=== PATIENT | female | born 1985 | race Caucasian/White ===

== ENCOUNTER → 2016-06-05 | Outpatient (CLI) | payer MEDICAID ==
[~2016-06-05] MED LIST: HYDRO50TAB PO; No current meds.; TRAZ50TA2 PO; ZOLO50TA PO
[2016-06-05 16:32] LABS: CONTROL LINE UCG INT CTR LINE PRESENT
[2016-06-05 16:57] LABS: ALBUMIN 3.7 GM/DL (3.2-5.2); ALBUMIN/GLOBULIN RATIO 1.03 (1.00-1.93); ALKALINE PHOSPHATASE 71 U/L (45-117); ALT/SGPT 94 U/L (12-78); ANION GAP 8 MEQ/L (8-16); AST/SGOT 75 U/L (15-37); BILIRUBIN,TOTAL 0.3 MG/DL (0.2-1.0); BLOOD UREA NITROGEN 5 MG/DL (7-18); CALCIUM LEVEL 8.5 MG/DL (8.5-10.1); CARBON DIOXIDE LEVEL 26 MEQ/L (21-32); CHLORIDE LEVEL 108 MEQ/L (98-107); GLOMERULAR FILTRATION RATE > 60.0 (>60); GLUCOSE, FASTING 104 MG/DL (70-105); POTASSIUM SERUM 4.3 MEQ/L (3.5-5.1); SODIUM LEVEL 142 MEQ/L (136-145); TOTAL PROTEIN 7.3 GM/DL (6.4-8.2)
[2016-06-05 17:11] LABS: BASO % 0.6 % (0.0-1.0); EOS # 0.2 K/mm3 (0.0-0.50); EOS % 3.4 % (0.0-3.0); LARGE UNSTAINED CELL # 0.1 K/mm3 (0.0-0.4); LARGE UNSTAINED CELL % 1.8 % (0.0-4.0); LYMPH # 2.3 K/mm3 (1.5-4.5); MEAN CORPUSCULAR HGB CONC 34.6 g/dl (32.0-36.5); MEAN CORPUSCULAR VOLUME 92.6 fl (80.0-96.0); MONO # 0.3 K/mm3 (0.0-0.8); MONO % 5.6 % (0.0-5.0); NEUTROPHILS # 2.9 K/mm3 (1.8-7.7); NEUTROPHILS % 49.7 % (36.0-66.0); PLATELET COUNT, AUTOMATED 140 k/mm3 (150-450); RED CELL DISTRIBUTION WIDTH 12.5 % (11.5-14.5); WHITE BLOOD COUNT 5.9 K/mm3 (4.0-10.0)
[2016-06-07 09:26] LABS: HIV SCRN NEGATIVE (NEGATIVE)
[2016-06-07 09:27] LABS: CONTROL LINE INT CTR LINE PRESENT; HIV SCRN1 NEGATIVE (NEGATIVE)
== END ==
LOC: M LAB 15:56
PROVIDERS: ATTEND Family Medicine
DX: F11.20 Opioid dependence, uncomplicated (principal)

== ENCOUNTER 2016-07-06 18:20 | Emergency (ER) | payer MEDICAID ==
[~2016-07-06] VITALS: Ht 160 cm; Wt 81.6 kg
[2016-07-06 18:21] VITALS: BP 131/66
[2016-07-06] MEDS ORDERED: ZYPR10TA PO (18:28)
[2016-07-06] MEDS ORDERED: buspar (18:28)
[2016-07-06] MEDS ORDERED: METH10TA2 PO (18:28)
[2016-07-06] MEDS ORDERED: IBUP80TA PO (18:51)
[2016-07-06] MEDS ORDERED: AMOX500C PO (18:51)
[2016-07-06] MEDS ORDERED: IBUPROFEN 800 MG TAB PO ONE (19:00)
[2016-07-06] MEDS ORDERED: AMOXICILLIN 500 MG CAP PO ONE (19:00)
[2016-07-06] MEDS ORDERED: ACETAMINOPHEN 325 MG TAB PO ONE (19:00)
== END 2016-07-06 19:09 | disposition home or self-care (01) ==
LOC: M ED 18:54
DX: K04.7 Periapical abscess without sinus (principal); F41.9 Anxiety disorder, unspecified; F32.9 Major depressive disorder, single episode, unspecified; F11.20 Opioid dependence, uncomplicated; Z79.899 Other long term (current) drug therapy; Z88.2 Allergy status to sulfonamides

== ENCOUNTER → 2016-09-11 | Outpatient (CLI) | payer OTHER ==
[~2016-09-11] MED LIST changes: +AMOX500C PO; +IBUP80TA PO; +METH10TA2 PO; +ZYPR10TA PO; +buspar
== END ==
LOC: M WUC 15:04
PROVIDERS: ATTEND Physician Assistant
DX: M25.561 Pain in right knee (principal)

== ENCOUNTER → 2016-09-16 | Outpatient (REF) | payer OTHER ==
[2016-09-16 19:22] LABS: BASO % 0.4 % (0.0-1.0); EOS # 0.2 K/mm3 (0.0-0.50); EOS % 2.7 % (0.0-3.0); LARGE UNSTAINED CELL # 0.1 K/mm3 (0.0-0.4); LARGE UNSTAINED CELL % 1.5 % (0.0-4.0); LYMPH # 2.7 K/mm3 (1.5-4.5); LYMPH % 30.9 % (24.0-44.0); MEAN CORPUSCULAR HEMOGLOBIN 28.5 pg (27.0-33.0); MEAN CORPUSCULAR HGB CONC 33.1 g/dl (32.0-36.5); MONO # 0.7 K/mm3 (0.0-0.8); MONO % 8.2 % (0.0-5.0); NEUTROPHILS # 4.6 K/mm3 (1.8-7.7); NEUTROPHILS % 56.4 % (36.0-66.0); PLATELET COUNT, AUTOMATED 154 k/mm3 (150-450); RED CELL DISTRIBUTION WIDTH 13.9 % (11.5-14.5); WHITE BLOOD COUNT 8.2 K/mm3 (4.0-10.0)
[2016-09-16 20:20] LABS: URIC ACID 4.2 MG/DL (2.6-6.0)
[2016-09-16 20:38] LABS: ERYTHROCYTE SEDIMENTATION RATE 18 mm/hr (0-20)
[2016-09-19 00:07] LABS: Lyme Disease IgG/IgM Antibodie <0.91 ISR (0.00-0.90); Lyme Disease IgM Ab Quantitati <0.80 index (0.00-0.79)
== END ==
LOC: M LABDRAW1 17:17
PROVIDERS: ATTEND Orthopaedic Surgery
DX: M25.561 Pain in right knee (principal)

== ENCOUNTER → 2016-10-07 | Outpatient (REF) | payer OTHER ==
[2016-10-07 18:32] LABS: BASO % 0.6 % (0.0-1.0); EOS # 0.3 K/mm3 (0.0-0.50); EOS % 3.7 % (0.0-3.0); LARGE UNSTAINED CELL # 0.1 K/mm3 (0.0-0.4); LARGE UNSTAINED CELL % 1.2 % (0.0-4.0); LYMPH # 2.5 K/mm3 (1.5-4.5); LYMPH % 31.7 % (24.0-44.0); MEAN CORPUSCULAR HEMOGLOBIN 27.5 pg (27.0-33.0); MEAN CORPUSCULAR HGB CONC 32.3 g/dl (32.0-36.5); MONO # 0.6 K/mm3 (0.0-0.8); MONO % 7.5 % (0.0-5.0); NEUTROPHILS # 4.2 K/mm3 (1.8-7.7); NEUTROPHILS % 55.3 % (36.0-66.0); PLATELET COUNT, AUTOMATED 131 k/mm3 (150-450); RED CELL DISTRIBUTION WIDTH 14.7 % (11.5-14.5); WHITE BLOOD COUNT 7.6 K/mm3 (4.0-10.0)
[2016-10-07 19:20] LABS: ALBUMIN 3.2 GM/DL (3.2-5.2); ALBUMIN/GLOBULIN RATIO 0.89 (1.00-1.93); ALKALINE PHOSPHATASE 96 U/L (45-117); ALT/SGPT 118 U/L (12-78); ANION GAP 9 MEQ/L (8-16); AST/SGOT 121 U/L (15-37); BILIRUBIN,TOTAL 0.4 MG/DL (0.2-1.0); BLOOD UREA NITROGEN 5 MG/DL (7-18); CALCIUM LEVEL 8.4 MG/DL (8.5-10.1); CARBON DIOXIDE LEVEL 26 MEQ/L (21-32); CHLORIDE LEVEL 105 MEQ/L (98-107); CREATININE FOR GFR 0.58 MG/DL (0.55-1.02); GLOMERULAR FILTRATION RATE > 60.0 (>60); GLUCOSE, FASTING 132 MG/DL (70-105); POTASSIUM SERUM 4.1 MEQ/L (3.5-5.1); SODIUM LEVEL 140 MEQ/L (136-145); TOTAL PROTEIN 6.8 GM/DL (6.4-8.2)
[2016-10-07 21:41] LABS: ERYTHROCYTE SEDIMENTATION RATE 16 mm/hr (0-20)
[2016-10-10 00:07] LABS: HEPATITIS C QUANTITATION 3562730 IU/mL (.); Lyme Disease IgG/IgM Antibodie <0.91 ISR (0.00-0.90); Lyme Disease IgM Ab Quantitati <0.80 index (0.00-0.79)
== END ==
LOC: M LABDRAW1 16:35
PROVIDERS: ATTEND Internal Medicine Rheumatology
DX: M05.79 Rheumatoid arthritis with rheumatoid factor of multiple sites without organ or systems involvement (principal); R53.83 Other fatigue; B18.2 Chronic viral hepatitis C; Z79.899 Other long term (current) drug therapy

== ENCOUNTER → 2016-10-07 | Outpatient (REF) | payer OTHER ==
[2016-10-07 18:49] LABS: CONTROL LINE HCG INT CTR LINE PRESENT
[2016-10-09 10:54] LABS: HEPATITIS B SURFACE ANTIBODY POSITIVE (POSITIVE)
[2016-10-12 00:08] LABS: ALT 112 IU/L (0-40); GGT 79 IU/L (0-60); HAPTOGLOBIN 97 mg/dL (34-200); HEPATITIS C VIRUS GENOTYPE 3 (.); NECROINFLAMM GRADE A2-A3 (.); TOTAL BILIRUBIN 0.2 mg/dL (0.0-1.2)
== END ==
LOC: M LABDRAW1 16:39
PROVIDERS: ATTEND Internal Medicine Infectious Disease
DX: B18.2 Chronic viral hepatitis C (principal); L02.221 Furuncle of abdominal wall; I01.1 Acute rheumatic endocarditis

== ENCOUNTER → 2016-10-23 | Outpatient (CLI) | payer OTHER ==
--- NOTE | 2016-10-23 19:18 | REP ---
MRI ABDOMEN WITHOUT CONTRAST (MRCP) 10/23/2016. Clinical history: Chronic hepatitis C, abnormal ultrasound. Comparison: Ultrasound 10/10/2016, 04/22/2014, CT abdomen 05/04/2014. Technique: Coronal and axial heavily T2-weighted sequences with thick slab heavily T2-weighted images rotated about the longitudinal axis of the body and a T2-weighted volume acquisition with MIP reformatting and rotational display about the longitudinal axis of the body for MRCP. Findings: The liver has a midclavicular line length of about 18 cm, mildly enlarged. No discrete hepatic mass. Common duct in the khai hepatis is dilated. The proximal intrahepatic ducts about 9 mm on the right and 8 mm on the left just before their junction. The common duct in the khai hepatis is further dilated. On the axial images, it is up to 16 mm. On the MRCP reconstructions also 16.6 mm. I do not see a filling defect. I do not see stricture with distal tapering of that duct to the ampulla. It courses through the pancreatic head. There is no filling defect to suggest stone or mass within the duct. Pancreatic duct is seen and not abnormally dilated. No gross pancreatic mass, cyst or adjacent fluid collection. Impression: 1. Mild hepatomegaly up to 18 cm without definite splenomegaly. The maximum diameter of the spleen is 12.4 cm. 2. Dilated common bile duct in the khai hepatis and also the most distal portions of the right and left hepatic ducts, which were 9 and 8 mm respectively. No filling defect is identified and this is not a post stenotic dilatation. I do not see definite stone or other filling defect with the duct extending to the khai hepatis. Of note, the CT 05/04/2014 that common duct was 16 mm at the khai hepatis. This suggests choledochocele. No significant intrahepatic biliary dilatation other than the distal most ducts. Signed by Brendan Cardenas MD 10/23/2016 07:25 P
== END ==
LOC: M RAD 09:56
PROVIDERS: ATTEND Internal Medicine Infectious Disease
DX: B18.2 Chronic viral hepatitis C (principal); R93.2 Abnormal findings on diagnostic imaging of liver and biliary tract

== ENCOUNTER → 2016-11-18 | Outpatient (REF) | payer OTHER | LOC: M SFHCPLAZ 08:58 | PROVIDERS: ATTEND Family Medicine | DX: E66.9 Obesity, unspecified (principal) ==

== ENCOUNTER → 2016-11-19 | Outpatient (REF) | payer OTHER | LOC: M SFHCPLAZ 13:12 | PROVIDERS: ATTEND Family Medicine | DX: R73.01 Impaired fasting glucose (principal) ==

== ENCOUNTER → 2016-12-09 | Outpatient (REF) | payer OTHER ==
[2016-12-09 13:44] LABS: ALBUMIN 3.3 GM/DL (3.2-5.2); ALKALINE PHOSPHATASE 95 U/L (45-117); ALT/SGPT 25 U/L (12-78); ANION GAP 7 MEQ/L (8-16); AST/SGOT 16 U/L (15-37); BILIRUBIN,TOTAL 0.2 MG/DL (0.2-1.0); BLOOD UREA NITROGEN 5 MG/DL (7-18); CALCIUM LEVEL 8.1 MG/DL (8.5-10.1); CARBON DIOXIDE LEVEL 27 MEQ/L (21-32); CHLORIDE LEVEL 106 MEQ/L (98-107); CREATININE FOR GFR 0.66 MG/DL (0.55-1.02); GLOMERULAR FILTRATION RATE > 60.0 (>60); GLUCOSE, FASTING 127 MG/DL (70-105); POTASSIUM SERUM 3.7 MEQ/L (3.5-5.1); SODIUM LEVEL 140 MEQ/L (136-145); TOTAL PROTEIN 7.4 GM/DL (6.4-8.2)
[2016-12-09 13:54] LABS: BASO % 0.3 % (0.0-1.0); EOS # 0.2 K/mm3 (0.0-0.50); EOS % 2.8 % (0.0-3.0); LARGE UNSTAINED CELL # 0.2 K/mm3 (0.0-0.4); LYMPH # 2.2 K/mm3 (1.5-4.5); LYMPH % 30.3 % (24.0-44.0); MEAN CORPUSCULAR HEMOGLOBIN 28.2 pg (27.0-33.0); MEAN CORPUSCULAR HGB CONC 33.8 g/dl (32.0-36.5); MEAN CORPUSCULAR VOLUME 83.4 fl (80.0-96.0); MONO # 0.5 K/mm3 (0.0-0.8); MONO % 6.4 % (0.0-5.0); NEUTROPHILS # 4.2 K/mm3 (1.8-7.7); NEUTROPHILS % 58.2 % (36.0-66.0); PLATELET COUNT, AUTOMATED 168 k/mm3 (150-450); RED CELL DISTRIBUTION WIDTH 14.8 % (11.5-14.5); WHITE BLOOD COUNT 7.3 K/mm3 (4.0-10.0)
[2016-12-09 14:28] LABS: ERYTHROCYTE SEDIMENTATION RATE 24 mm/hr (0-20)
== END ==
LOC: M LABDRAW1 13:00
PROVIDERS: ATTEND Internal Medicine Rheumatology
DX: B18.2 Chronic viral hepatitis C (principal); E11.9 Type 2 diabetes mellitus without complications; M05.79 Rheumatoid arthritis with rheumatoid factor of multiple sites without organ or systems involvement; F31.9 Bipolar disorder, unspecified; F43.10 Post-traumatic stress disorder, unspecified; L02.224 Furuncle of groin

== ENCOUNTER → 2016-12-17 | Outpatient (REF) | payer OTHER ==
[2016-12-17 14:34] LABS: ALBUMIN 3.5 GM/DL (3.2-5.2); ALBUMIN/GLOBULIN RATIO 0.8 (1.00-1.93); BILIRUBIN,DIRECT 0.1 MG/DL (0.0-0.2); BILIRUBIN,TOTAL 0.3 MG/DL (0.2-1.0); TOTAL PROTEIN 7.9 GM/DL (6.4-8.2)
[2016-12-19 10:14] LABS: HEPATITIS C QUANTITATION HCV Not Detected IU/mL (.)
== END ==
LOC: M SFHCPLAZ 10:33
PROVIDERS: ATTEND Internal Medicine Infectious Disease
DX: E11.69 Type 2 diabetes mellitus with other specified complication (principal); B18.2 Chronic viral hepatitis C

== ENCOUNTER → 2017-05-05 | Outpatient (CLI) | payer OTHER ==
[2017-05-05 14:45] LABS: HEMATOCRIT 38.4 % (36.0-47.0); HEMOGLOBIN 12.9 g/dl (12.0-16.0); MEAN CORPUSCULAR HEMOGLOBIN 28.7 pg (27.0-33.0); MEAN CORPUSCULAR HGB CONC 33.6 g/dl (32.0-36.5); MEAN CORPUSCULAR VOLUME 85.3 fl (80.0-96.0); PLATELET COUNT, AUTOMATED 188 10^3/uL (150-450); RED CELL DISTRIBUTION WIDTH 14.2 % (11.5-14.5); WHITE BLOOD COUNT 9.1 10^3/uL (4.0-10.0)
[2017-05-05 17:12] LABS: CHLAMYDIA DNA AMPLIFICATION NEGATIVE (NEGATIVE); GC DNA AMPLIFICATION NEGATIVE (NEGATIVE)
[2017-05-05 22:10] LABS: ALBUMIN 3.7 GM/DL (3.2-5.2); ALKALINE PHOSPHATASE 104 U/L (45-117); ALT/SGPT 20 U/L (12-78); ANION GAP 10 MEQ/L (8-16); AST/SGOT 17 U/L (7-37); BILIRUBIN,TOTAL 0.2 MG/DL (0.2-1.0); BLOOD UREA NITROGEN 6 MG/DL (7-18); CALCIUM LEVEL 8.6 MG/DL (8.5-10.1); CARBON DIOXIDE LEVEL 22 MEQ/L (21-32); CHLORIDE LEVEL 110 MEQ/L (98-107); CREATININE FOR GFR 0.87 MG/DL (0.55-1.30); GLOMERULAR FILTRATION RATE > 60.0 (>60); GLUCOSE, FASTING 103 MG/DL (70-100); POTASSIUM SERUM 3.9 MEQ/L (3.5-5.1); SODIUM LEVEL 142 MEQ/L (136-145); TOTAL PROTEIN 7.4 GM/DL (6.4-8.2)
[2017-05-07 11:07] LABS: HEPATITIS B SURFACE ANTIGEN NEGATIVE (NEGATIVE)
[2017-05-07 11:28] LABS: HIV 1&2 SCREEN CENTAUR NEGATIVE (NEGATIVE)
[2017-05-07 11:38] LABS: HEPATITIS C VIRUS ABY INDEX > 11.0 INDEX (<0.8)
== END ==
LOC: M LAB 13:41
DX: F11.20 Opioid dependence, uncomplicated (principal)
CPT/HCPCS: 93005

== ENCOUNTER → 2017-05-05 | Outpatient (CLI) | payer OTHER ==
[2017-05-05 15:20] LABS: ALBUMIN 3.6 GM/DL (3.2-5.2); ALBUMIN/GLOBULIN RATIO 0.92 (1.00-1.93); ALKALINE PHOSPHATASE 105 U/L (45-117); ALT/SGPT 20 U/L (12-78); ANION GAP 8 MEQ/L (8-16); AST/SGOT 15 U/L (7-37); BILIRUBIN,TOTAL 0.2 MG/DL (0.2-1.0); BLOOD UREA NITROGEN 7 MG/DL (7-18); CALCIUM LEVEL 8.3 MG/DL (8.5-10.1); CARBON DIOXIDE LEVEL 23 MEQ/L (21-32); CHLORIDE LEVEL 110 MEQ/L (98-107); GLOMERULAR FILTRATION RATE > 60.0 (>60); GLUCOSE, FASTING 102 MG/DL (70-100); POTASSIUM SERUM 3.9 MEQ/L (3.5-5.1); SODIUM LEVEL 141 MEQ/L (136-145); TOTAL PROTEIN 7.5 GM/DL (6.4-8.2)
[2017-05-05 16:40] LABS: HEMATOCRIT 39.2 % (36.0-47.0); HEMOGLOBIN 13.1 g/dl (12.0-16.0); MEAN CORPUSCULAR HEMOGLOBIN 28.5 pg (27.0-33.0); MEAN CORPUSCULAR HGB CONC 33.4 g/dl (32.0-36.5); MEAN CORPUSCULAR VOLUME 85.4 fl (80.0-96.0); PLATELET COUNT, AUTOMATED 195 10^3/uL (150-450); RED BLOOD COUNT 4.59 10^6/uL (4.00-5.40); RED CELL DISTRIBUTION WIDTH 14.2 % (11.5-14.5)
[2017-05-05 16:47] LABS: ADD MANUAL DIFFER YES; DIFF SLIDE NUMBER 306; POSITIVE MORPH POS FLAG
[2017-05-05 17:49] LABS: BASOPHILS 1 % (0-4); EOSINOPHILS 2 % (0-5); LYMPHOCYTES 48 % (16-52); MONOCYTES 5 % (0-8); NEUTROPHILS 44 % (35-75); PLATELET ESTIMATE NORMAL (NORMAL)
== END ==
LOC: M LAB 13:46
DX: M05.79 Rheumatoid arthritis with rheumatoid factor of multiple sites without organ or systems involvement (principal); Z51.81 Encounter for therapeutic drug level monitoring; Z79.899 Other long term (current) drug therapy

== ENCOUNTER → 2017-05-13 | Outpatient (REF) | payer OTHER ==
[2017-05-13 14:47] LABS: ESTIMATED AVERAGE GLUCOSE 105 MG/DL (60-110); HEMOGLOBIN A1c 5.3 %
== END ==
LOC: M SFHCPLAZ 10:54
DX: E11.69 Type 2 diabetes mellitus with other specified complication (principal)

== ENCOUNTER → 2017-05-22 | Outpatient (REF) | payer OTHER ==
[2017-05-26 10:08] LABS: HEPATITIS C QUANTITATION HCV Not Detected IU/mL (.)
== END ==
LOC: M SFHCPLAZ 11:00
DX: B18.2 Chronic viral hepatitis C (principal)
CPT/HCPCS: 36415

== ENCOUNTER → 2017-06-27 | Outpatient (CLI) | payer OTHER ==
[~2017-06-27] MED LIST changes: -AMOX500C PO; -HYDRO50TAB PO; -IBUP80TA PO; -METH10TA2 PO; -No current meds.; +PROHANCE 279.3MG/ML 15ML VIAL (A9576) As Ordered; +PROHANCE 279.3MG/ML 5ML VIAL (A9576) As Ordered; -TRAZ50TA2 PO; -ZOLO50TA PO; -ZYPR10TA PO; -buspar
== END ==
LOC: M RAD 15:59
DX: R93.3 Abnormal findings on diagnostic imaging of other parts of digestive tract (principal)

== ENCOUNTER 2017-07-16 18:32 | Emergency (ER) | payer OTHER ==
[2017-07-16 19:50] LABS: BASO # 0.1 10^3/uL (0.0-0.2); BASO % 0.6 % (0.0-1.0); EOS # 0.2 10^3/uL (0.0-0.50); EOS % 2.3 % (0.0-3.0); HEMATOCRIT 35.1 % (36.0-47.0); HEMOGLOBIN 11.7 g/dl (12.0-15.5); IMMATURE GRANULOCYTE % 0.5 % (0-3.0); LYMPH # 3.1 10^3/uL (1.5-4.5); LYMPH % 32.7 % (24.0-44.0); MEAN CORPUSCULAR HEMOGLOBIN 28.4 pg (27.0-33.0); MEAN CORPUSCULAR HGB CONC 33.3 g/dl (32.0-36.5); MEAN CORPUSCULAR VOLUME 85.2 fl (80.0-96.0); MONO # 0.8 10^3/uL (0.0-0.8); MONO % 8.1 % (0.0-5.0); NEUTROPHILS # 5.3 10^3/uL (1.8-7.7); NEUTROPHILS % 55.8 % (36.0-66.0); PLATELET COUNT, AUTOMATED 177 10^3/uL (150-450); RED BLOOD COUNT 4.12 10^6/uL (4.00-5.40); RED CELL DISTRIBUTION WIDTH 13.8 % (11.5-14.5); WHITE BLOOD COUNT 9.6 10^3/uL (4.0-10.0)
[2017-07-16] MEDS: NS 1,000 ML IV (19:50)
[2017-07-16] MEDS: MORPHINE 4 MG/ML 1ML VIAL/SYRINGE (J2270) IV (19:50)
[2017-07-16 20:13] LABS: CONTROL LINE HCG INT CTR LINE PRESENT; HCG, SERUM QUALITATIVE NEGATIVE (NEGATIVE)
[2017-07-16] MEDS ORDERED: ISOVUE-370 76% 100ML VIAL (Q9967) As Ordered (20:16)
[2017-07-16 20:20] LABS: LACTIC ACID SEPSIS PROTOCOL 1.9 MMOL/L (0.4-2.0)
[2017-07-16 20:21] LABS: ALBUMIN 3.3 GM/DL (3.2-5.2); ALKALINE PHOSPHATASE 97 U/L (45-117); ALT/SGPT 17 U/L (12-78); ANION GAP 6 MEQ/L (8-16); AST/SGOT 12 U/L (7-37); BILIRUBIN,DIRECT < 0.1 MG/DL (0.0-0.2); BILIRUBIN,TOTAL 0.2 MG/DL (0.2-1.0); BLOOD UREA NITROGEN 7 MG/DL (7-18); CALCIUM LEVEL 8.3 MG/DL (8.5-10.1); CARBON DIOXIDE LEVEL 24 MEQ/L (21-32); CHLORIDE LEVEL 111 MEQ/L (98-107); CREATININE FOR GFR 0.95 MG/DL (0.55-1.30); GLOMERULAR FILTRATION RATE > 60.0 (>60); GLUCOSE, FASTING 122 MG/DL (70-100); POTASSIUM SERUM 3.7 MEQ/L (3.5-5.1); SODIUM LEVEL 141 MEQ/L (136-145); TOTAL PROTEIN 7.4 GM/DL (6.4-8.2)
[2017-07-16] MEDS: KETOROLAC 30 MG/ML VIAL (J1885) IV (21:34)
[2017-07-16] MEDS: CLINDAMYCIN 600 MG in APPROPRIATE DILUENT 1 EA IV (23:15)
== END 2017-07-16 23:57 | disposition home or self-care (01) ==
LOC: M ED 18:32
DX: L02.211 Cutaneous abscess of abdominal wall (principal); K42.9 Umbilical hernia without obstruction or gangrene; R16.2 Hepatomegaly with splenomegaly, not elsewhere classified; Z79.899 Other long term (current) drug therapy; Z88.2 Allergy status to sulfonamides
CPT/HCPCS: J2270

== ENCOUNTER → 2017-07-22 | Outpatient (REF) | payer OTHER ==
[2017-07-25 00:07] LABS: HPV HYBRID CAPTURE II Negative (Negative)
== END ==
LOC: M SFHCPLAZ 15:41
DX: Z12.4 Encounter for screening for malignant neoplasm of cervix (principal)

== ENCOUNTER → 2017-12-24 | Outpatient (REF) | payer OTHER ==
[2017-12-26 14:07] LABS: HEPATITIS A ANTIBODY IGM NEGATIVE (NEGATIVE); HEPATITIS B CORE ANTIBODY IGM NEGATIVE (NEGATIVE); HEPATITIS B SURFACE ANTIGEN NEGATIVE (NEGATIVE); HIV 1&2 SCREEN CENTAUR NEGATIVE (NEGATIVE)
[2017-12-26 14:08] LABS: HEPATITIS C VIRUS ABY INDEX > 11.0 INDEX (<0.8)
[2017-12-27 15:28] LABS: HSV TYPE I IgG SPECIFIC 5.76 index (0.00-0.90); HSV TYPE II IgG SPECIFIC 1.08 index (0.00-0.90); HSV-2 IgG Confirmation Positive (Negative)
[2017-12-29 08:06] LABS: HCV RNA NAA QUALITATIVE Negative (Negative)
== END ==
LOC: M SFHCPLAZ 16:17
DX: Z87.898 Personal history of other specified conditions (principal)

== ENCOUNTER → 2018-01-26 | Outpatient (REF) | payer OTHER | LOC: M SFHCPLAZ 17:31 | DX: L02.93 Carbuncle, unspecified (principal) | CPT/HCPCS: 87186 ==

== ENCOUNTER 2018-03-15 19:42 | Emergency (ER) | payer OTHER ==
[~2018-03-15] VITALS: Ht 160 cm; Wt 113.6 kg
[~2018-03-15 19:42] MED LIST changes: +AMOX500C PO; +BUPR300T34 PO; +CLEO300C2 PO; +DOLO10TA PO; +ENBR50IN4; +HYDRO50TAB PO; +IBUP80TA PO; +METF500T4 PO; +METH10TA2 PO; +No current meds.; -PROHANCE 279.3MG/ML 15ML VIAL (A9576) As Ordered; -PROHANCE 279.3MG/ML 5ML VIAL (A9576) As Ordered; +TOPI100T9 PO; +TRAZ50TA2 PO; +ZIPR40CA11 PO; +ZOLO50TA PO; +ZYPR10TA PO; +buspar
[2018-03-15 20:14] LABS: URINE PREG TEST NEGATIVE (NEGATIVE)
[2018-03-15] MEDS ORDERED: KETOROLAC TROMETHAMINE 10 MG TAB PO ONE (20:30)
[2018-03-15] MEDS ORDERED: PYRI1TAB5 PO (21:24)
[2018-03-15] MEDS ORDERED: CIPR-249 PO (21:24)
[2018-03-15] MEDS ORDERED: CIPROFLOXACIN 500 MG TAB PO ONE (21:45)
[2018-03-15 21:46] VITALS: BP 138/72
[2018-03-15 22:23] LABS: CHLAMYDIA DNA AMPLIFICATION NEGATIVE (NEGATIVE); GC DNA AMPLIFICATION NEGATIVE (NEGATIVE)
== END 2018-03-15 21:48 | disposition home or self-care (01) ==
LOC: M ED 19:42
DX: N30.90 Cystitis, unspecified without hematuria (principal); Z88.0 Allergy status to penicillin; F17.210 Nicotine dependence, cigarettes, uncomplicated

== ENCOUNTER → 2018-04-01 | Outpatient (REF) | payer OTHER ==
[~2018-04-01] MED LIST changes: +CIPR-249 PO; +PYRI1TAB5 PO
[2018-04-01 18:17] LABS: APPEARANCE, URINE CLOUDY (CLEAR); BACTERIA, URINE AUTO NEGATIVE (NEGATIVE); BILIRUBIN, URINE AUTO NEGATIVE (NEGATIVE); BLOOD, URINE BLOOD 3+ (NEGATIVE); COLOR, URINE YELLOW (YELLOW); GLUCOSE, URINE (UA) AUTO NEGATIVE (NEGATIVE); KETONE, URINE AUTO NEGATIVE (NEGATIVE); LEUKOCYTE ESTERASE, URINE AUTO NEGATIVE (NEGATIVE); MUCUS, URINE SMALL (NEGATIVE); NITRITE, URINE AUTO NEGATIVE (NEGATIVE); PROTEIN, URINE AUTO NEGATIVE (NEGATIVE); RBC, URINE AUTO 8 /HPF (0-3); SPECIFIC GRAVITY URINE AUTO 1.017 (1.002-1.035); SQUAMOUS EPITHELIAL CELL UR AU 10 /HPF (0-6); UROBILINOGEN, URINE AUTO 0.2 mg/dL (0.0-2.0); WBC, URINE AUTO 0 /HPF (0-3)
== END ==
LOC: M SFHCPLAZ 17:05
PROVIDERS: ATTEND Family Medicine
DX: R39.15 Urgency of urination (principal)

== ENCOUNTER → 2018-04-07 | Outpatient (REF) | payer OTHER ==
[2018-04-07 17:42] LABS: ALBUMIN 3.4 GM/DL (3.2-5.2); ALT/SGPT 18 U/L (12-78); BILIRUBIN,TOTAL 0.2 MG/DL (0.2-1.0); BLOOD UREA NITROGEN 7 MG/DL (7-18); CALCIUM LEVEL 8.7 MG/DL (8.5-10.1); CARBON DIOXIDE LEVEL 21 MEQ/L (21-32); CHLORIDE LEVEL 108 MEQ/L (98-107); CHOLESTEROL LEVEL 169 MG/DL (<200); CREATININE FOR GFR 0.93 MG/DL (0.55-1.30); GLOMERULAR FILTRATION RATE > 60.0 (>60); GLUCOSE, FASTING 90 MG/DL (70-100); HDL CHOLESTEROL 25 MG/DL (>40); LDL CHOLESTEROL 92 MG/DL (<100); NON-HDL-C 144 MG/DL; POTASSIUM SERUM 4.4 MEQ/L (3.5-5.1); SODIUM LEVEL 137 MEQ/L (136-145); TOTAL PROTEIN 7.3 GM/DL (6.4-8.2); TRIGLYCERIDES LEVEL 259 MG/DL (<150)
[2018-04-07 17:55] LABS: CREATININE, URINE < 13.0 MG/DL; HEMOGLOBIN A1c 5.6 %; MALB URINE SIEMENS < 5.0 MG/L
[2018-04-07 17:56] LABS: APPEARANCE, URINE CLEAR (CLEAR); BACTERIA, URINE AUTO 1+ (NEGATIVE); BILIRUBIN, URINE AUTO NEGATIVE (NEGATIVE); BLOOD, URINE BLOOD NEGATIVE (NEGATIVE); COLOR, URINE STRAW (YELLOW); GLUCOSE, URINE (UA) AUTO NEGATIVE (NEGATIVE); KETONE, URINE AUTO NEGATIVE (NEGATIVE); LEUKOCYTE ESTERASE, URINE AUTO NEGATIVE (NEGATIVE); NITRITE, URINE AUTO NEGATIVE (NEGATIVE); PROTEIN, URINE AUTO NEGATIVE (NEGATIVE); RBC, URINE AUTO 1 /HPF (0-3); SPECIFIC GRAVITY URINE AUTO 1.001 (1.002-1.035); SQUAMOUS EPITHELIAL CELL UR AU 0 /HPF (0-6); UROBILINOGEN, URINE AUTO 0.2 mg/dL (0.0-2.0); WBC, URINE AUTO 0 /HPF (0-3)
== END ==
LOC: M SFHCPLAZ 15:13
PROVIDERS: ATTEND Family Medicine
DX: R31.29 Other microscopic hematuria (principal)

== ENCOUNTER → 2018-04-28 | Outpatient (CLI) | payer OTHER ==
[2018-04-28 15:09] LABS: HEMATOCRIT 36.3 % (36.0-47.0); HEMOGLOBIN 11.6 g/dl (12.0-15.5); MEAN CORPUSCULAR HEMOGLOBIN 26.5 pg (27.0-33.0); MEAN CORPUSCULAR VOLUME 82.9 fl (80.0-96.0); PLATELET COUNT, AUTOMATED 197 10^3/uL (150-450); RED BLOOD COUNT 4.38 10^6/uL (4.00-5.40); WHITE BLOOD COUNT 9.5 10^3/uL (4.0-10.0)
[2018-04-28 15:16] LABS: HCG, SERUM QUALITATIVE NEGATIVE (NEGATIVE)
[2018-04-28 15:20] LABS: ALBUMIN 3.4 GM/DL (3.2-5.2); ALT/SGPT 14 U/L (12-78); BILIRUBIN,TOTAL 0.2 MG/DL (0.2-1.0); BLOOD UREA NITROGEN 8 MG/DL (7-18); CALCIUM LEVEL 8.7 MG/DL (8.5-10.1); CARBON DIOXIDE LEVEL 23 MEQ/L (21-32); CHLORIDE LEVEL 107 MEQ/L (98-107); GLOMERULAR FILTRATION RATE > 60.0 (>60); GLUCOSE, FASTING 92 MG/DL (70-100); POTASSIUM SERUM 4.1 MEQ/L (3.5-5.1); SODIUM LEVEL 138 MEQ/L (136-145); TOTAL PROTEIN 7.1 GM/DL (6.4-8.2)
[2018-04-28 16:36] LABS: CHLAMYDIA DNA AMPLIFICATION NEGATIVE (NEGATIVE); GC DNA AMPLIFICATION NEGATIVE (NEGATIVE)
--- NOTE | 2018-04-29 08:38 | ECGEPIP ---
Stationary ECG Study [facility] Test Date: 2018-04-28 Pat Name: ARLENE FONSECA Department: Room: - Gender: F Senior Planning Manager: ASHANTI : 1985 Requested By: Yuri Cedeno Order Number: [id number] Reading MD: Ayden Quinones Measurements Intervals [place] Rate: 70 P: 34 NM: 164 QRS: 2 QRSD: 100 T: 13 QT: 386 QTc: 419 Interpretive Statements SINUS RHYTHM NO CHANGE SINCE 05/05/17 Electronically Signed On 04-29-2018 8:38:22 EST by Ayden Quinones
[2018-04-29 09:48] LABS: HEPATITIS B SURFACE ANTIGEN NEGATIVE (NEGATIVE)
[2018-04-29 10:17] LABS: HIV 1&2 SCREEN CENTAUR NEGATIVE (NEGATIVE)
[2018-04-29 10:52] LABS: HEPATITIS C VIRUS ABY INDEX > 11.0 INDEX (<0.8)
== END ==
LOC: M LAB 13:42
PROVIDERS: ATTEND Family Medicine
DX: F11.20 Opioid dependence, uncomplicated (principal)

== ENCOUNTER → 2018-08-19 | Outpatient (REF) | payer OTHER ==
[~2018-08-19] MED LIST changes: +HYDR-4274 PO; -HYDRO50TAB PO
[2018-08-19 14:08] LABS: HCG, SERUM QUALITATIVE NEGATIVE (NEGATIVE)
[2018-08-19 14:50] LABS: HIV 1&2 SCREEN CENTAUR NEGATIVE (NEGATIVE)
[2018-08-19 15:21] LABS: CHLAMYDIA DNA AMPLIFICATION NEGATIVE (NEGATIVE); GC DNA AMPLIFICATION NEGATIVE (NEGATIVE)
== END ==
LOC: M SFHCPLAZ 11:38
PROVIDERS: ATTEND Family Medicine
DX: Z72.51 High risk heterosexual behavior (principal); Z11.3 Encounter for screening for infections with a predominantly sexual mode of transmission

== ENCOUNTER 2018-09-04 20:11 | Emergency (ER) | payer OTHER ==
[2018-09-04] MEDS ORDERED: SUBO8MIS SL (20:19)
[2018-09-04] MEDS ORDERED: LATU40TA PO (20:20)
[2018-09-04] MEDS ORDERED: NS 1,000 ML IV ONE (22:00)
[2018-09-04 22:37] LABS: BASO % 0.5 % (0.0-1.0); EOS # 0.2 10^3/uL (0.0-0.50); EOS % 2.3 % (0.0-3.0); HEMATOCRIT 34.4 % (36.0-47.0); HEMOGLOBIN 11.2 g/dl (12.0-15.5); LYMPH % 34.8 % (24.0-44.0); MEAN CORPUSCULAR HEMOGLOBIN 27.3 pg (27.0-33.0); MEAN CORPUSCULAR HGB CONC 32.6 g/dl (32.0-36.5); MEAN CORPUSCULAR VOLUME 83.7 fl (80.0-96.0); MONO # 0.6 10^3/uL (0.0-0.8); MONO % 7.2 % (0.0-5.0); NEUTROPHILS # 4.7 10^3/uL (1.8-7.7); NEUTROPHILS % 54.9 % (36.0-66.0); PLATELET COUNT, AUTOMATED 159 10^3/uL (150-450); RED BLOOD COUNT 4.11 10^6/uL (4.00-5.40); WHITE BLOOD COUNT 8.6 10^3/uL (4.0-10.0)
[2018-09-04 22:54] VITALS: BP 127/59
[2018-09-04] MEDS ORDERED: ceFAZolin SOD 1 GM in D5W MINI-BAG PLUS 50 ML IV ONE (23:00)
[2018-09-04 23:02] LABS: ALBUMIN 3.5 GM/DL (3.2-5.2); ALT/SGPT 21 U/L (12-78); BILIRUBIN,DIRECT 0.2 MG/DL (0.0-0.2); BILIRUBIN,TOTAL 0.3 MG/DL (0.2-1.0); BLOOD UREA NITROGEN 7 MG/DL (7-18); CALCIUM LEVEL 8.5 MG/DL (8.5-10.1); CARBON DIOXIDE LEVEL 27 MEQ/L (21-32); CHLORIDE LEVEL 106 MEQ/L (98-107); CREATININE FOR GFR 0.72 MG/DL (0.55-1.30); GLOMERULAR FILTRATION RATE > 60.0 (>60); GLUCOSE, FASTING 91 MG/DL (70-100); POTASSIUM SERUM 3.9 MEQ/L (3.5-5.1); SODIUM LEVEL 139 MEQ/L (136-145); TOTAL PROTEIN 6.9 GM/DL (6.4-8.2)
--- NOTE | 2018-09-04 23:17 | REPVR ---
EXAM: US Abdomen Limited EXAM DATE/TIME: 09/04/2018 10:41 PM CLINICAL HISTORY: 33 years old, female; Abdominal pain; Other: Suprapubic area; Prior surgery; Surgery date: 6+ months; Surgery type: C- section in 2011; Additional info: Infection suprapubic. R/O abscess TECHNIQUE: Imaging protocol: Real-time ultrasound of the abdomen with image documentation. Examination is focused on the region of clinical interest. COMPARISON: LIVER US 04/22/2014 8:32 AM FINDINGS: Soft tissues: Imaging of the suprapubic region in the area of palpable tenderness demonstrates a complex fluid collection measuring 3.4 x 2 x 3.8 cm extending to the cutaneous surface which demonstrates increased flow and a thickened wall, measuring 4.8 mm. The lesion has an appearance consistent with a hematoma, fistula, or abscess. IMPRESSION: Imaging of the suprapubic region in the area of palpable tenderness demonstrates a complex fluid collection measuring extending to the cutaneous surface which demonstrates increased flow and a thickened wall. The lesion has an appearance consistent with a hematoma, fistula, or abscess. Electronically signed by: Berry Toribio On 09/04/2018 23:17:14 PM
[2018-09-04] MEDS ORDERED: DOXY100C37 PO (23:42)
--- NOTE | 2018-09-07 12:21 | ED PDOC ---
Post-Departure Follow-Up dr arreguin and dr ortiz faxed formal report of abd us for fu Stanley Scott MD Sep 07, 2018 12:21
== END 2018-09-04 23:47 | disposition home or self-care (01) ==
LOC: M ED 20:11
DX: L73.2 Hidradenitis suppurativa (principal); L02.211 Cutaneous abscess of abdominal wall; L03.311 Cellulitis of abdominal wall; E11.9 Type 2 diabetes mellitus without complications; Z72.0 Tobacco use; Z79.899 Other long term (current) drug therapy; Z88.2 Allergy status to sulfonamides
CPT/HCPCS: 76705; 80048; 80076; 84702; 85025; 87040; 87070; 87077; 87186; 87205; 96365; 99284; J0690

== ENCOUNTER → 2018-11-06 | Outpatient (REF) | payer OTHER ==
[~2018-11-06] MED LIST changes: +DOXY100C37 PO; -ENBR50IN4; +ETAN50PE; +LATU40TA PO; +SUBO8MIS SL
[2018-11-06 19:34] LABS: CHLAMYDIA DNA AMPLIFICATION NEGATIVE (NEGATIVE); GC DNA AMPLIFICATION NEGATIVE (NEGATIVE)
== END ==
LOC: M SFHCPLAZ 16:47
PROVIDERS: ATTEND Family Medicine
DX: N89.8 Other specified noninflammatory disorders of vagina (principal)

== ENCOUNTER → 2018-12-18 | Outpatient (REF) | payer OTHER ==
[~2018-12-18] MED LIST changes: +AMMO12CR7; +METF-791 PO; -METF500T4 PO; +NITR100C2; +TRAZ-163; +VENTAER INH
[2018-12-18 15:17] LABS: AMORPHOUS SEDIMENT LARGE (NEGATIVE); APPEARANCE, URINE TURBID (CLEAR); BACTERIA, URINE AUTO NEGATIVE (NEGATIVE); BILIRUBIN, URINE AUTO NEGATIVE (NEGATIVE); BLOOD, URINE BLOOD 1+ (NEGATIVE); COLOR, URINE YELLOW (YELLOW); GLUCOSE, URINE (UA) AUTO NEGATIVE (NEGATIVE); KETONE, URINE AUTO NEGATIVE (NEGATIVE); LEUKOCYTE ESTERASE, URINE AUTO NEGATIVE (NEGATIVE); MUCUS, URINE LARGE (NEGATIVE); NITRITE, URINE AUTO NEGATIVE (NEGATIVE); PROTEIN, URINE AUTO NEGATIVE (NEGATIVE); RBC, URINE AUTO 0 /HPF (0-3); SPECIFIC GRAVITY URINE AUTO 1.021 (1.002-1.035); SQUAMOUS EPITHELIAL CELL UR AU 0 /HPF (0-6); WBC, URINE AUTO 0 /HPF (0-3)
[2018-12-18 16:54] LABS: CHLAMYDIA DNA AMPLIFICATION NEGATIVE (NEGATIVE); GC DNA AMPLIFICATION NEGATIVE (NEGATIVE)
== END ==
LOC: M SFHCPLAZ 12:41
PROVIDERS: ATTEND Family Medicine
DX: N89.8 Other specified noninflammatory disorders of vagina (principal)

== ENCOUNTER → 2018-12-18 | Outpatient (REF) | payer OTHER ==
[2018-12-18 20:28] LABS: HEMOGLOBIN A1c 5.2 %
== END ==
LOC: M SFHCPLAZ 11:29
PROVIDERS: ATTEND Family Medicine
DX: R07.89 Other chest pain (principal); R32 Unspecified urinary incontinence

== ENCOUNTER 2018-12-19 17:18 | Emergency (ER) | payer OTHER ==
[~2018-12-19] VITALS: Ht 167.6 cm; Wt 90.5 kg
[2018-12-19 17:18] VITALS: BP 131/61
[~2018-12-19 17:18] MED LIST changes: -AMMO12CR7; -NITR100C2; -TRAZ-163; -VENTAER INH
[2018-12-19] MEDS ORDERED: AMMO12CR7 (17:41)
[2018-12-19] MEDS ORDERED: TRAZ-163 (17:41)
[2018-12-19] MEDS ORDERED: NITR100C2 (17:41)
[2018-12-19] MEDS ORDERED: NS 1,000 ML IV ONE (18:00)
[2018-12-19] MEDS ORDERED: IPRATROPIUM 0.5MG/ALBUTEROL 2.5MG INH SOL UD 3ML (DUONEB)(J7620) NEB ONE (18:00)
[2018-12-19] MEDS ORDERED: ALBUTEROL SULFATE 2.5 MG/0.5 ML INH NEB SOLN INH ONE (18:00)
[2018-12-19 18:21] LABS: BASO # 0.1 10^3/uL (0.0-0.2); BASO % 0.6 % (0.0-1.0); EOS # 0.2 10^3/uL (0.0-0.5); EOS % 2.3 % (0.0-3.0); HEMATOCRIT 37.9 % (36.0-47.0); LYMPH # 3.2 10^3/uL (1.5-5.0); LYMPH % 38.3 % (24.0-44.0); MEAN CORPUSCULAR HEMOGLOBIN 26.8 pg (27.0-33.0); MEAN CORPUSCULAR HGB CONC 31.7 g/dl (32.0-36.5); MEAN CORPUSCULAR VOLUME 84.6 fl (80.0-96.0); MONO # 0.4 10^3/uL (0.0-0.8); MONO % 5.3 % (0.0-5.0); NEUTROPHILS # 4.5 10^3/uL (1.5-8.5); NEUTROPHILS % 53.3 % (36.0-66.0); PLATELET COUNT, AUTOMATED 220 10^3/uL (150-450); RED BLOOD COUNT 4.48 10^6/uL (4.00-5.40); WHITE BLOOD COUNT 8.4 10^3/uL (4.0-10.0)
[2018-12-19] MEDS ORDERED: ISOVUE-370 76% 100ML VIAL (Q9967) As Ordered ONE (19:29)
[2018-12-19 19:47] LABS: TROPONIN I < 0.02 NG/ML (< 0.10)
[2018-12-19 20:29] LABS: HCG, SERUM QUALITATIVE NEGATIVE (NEGATIVE)
[2018-12-19] MEDS ORDERED: VENTAER INH (21:00)
--- NOTE | 2018-12-19 21:44 | REPVR ---
PROCEDURE INFORMATION: Exam: CT Angiography Chest With Contrast Exam date and time: 12/19/2018 8:34 PM Clinical history: 33 years old, female; Pain and abnormal findings; Abnormal diagnostic tests; Elevated d-dimer; Shortness of breath; Chest pain; Type not specified; Additional info: Chest pain, SOB + d-dimer TECHNIQUE: Imaging protocol: Computed tomographic angiography of the chest with intravenous contrast. 3D rendering: MIP reconstructed images were created and reviewed. Radiation optimization: All CT scans at this facility use at least one of these dose optimization techniques: automated exposure control; mA and/or kV adjustment per patient size (includes targeted exams where dose is matched to clinical indication); or iterative reconstruction. Contrast material: ISOVUE 370; Contrast volume: 100 ml; Contrast route: IV; COMPARISON: No relevant prior studies available. FINDINGS: Pulmonary arteries: There is opacification of the pulmonary arteries with no evidence of pulmonary embolus. Aorta: There is opacification of the aorta which appears intact. Lungs: There is mild right basilar atelectasis. Pleural space: There is no evidence of pneumothorax and no evidence of pleural effusion. Heart: The heart is normal in size and there is no pericardial effusion. Lymph nodes: Unremarkable. No enlarged lymph nodes. Bones/joints: Unremarkable. No acute fracture. Soft tissues: Unremarkable. IMPRESSION: 1. No evidence of pulmonary embolus. 2. Mild right basilar atelectasis. Electronically signed by: Jaquan Alejo On 12/19/2018 21:44:17 PM
== END 2018-12-19 21:09 | disposition left against medical advice (07) ==
LOC: M ED 17:18
DX: R06.02 Shortness of breath (principal); R06.2 Wheezing; R05 Cough; J45.909 Unspecified asthma, uncomplicated; E11.9 Type 2 diabetes mellitus without complications; F33.9 Major depressive disorder, recurrent, unspecified; F41.9 Anxiety disorder, unspecified; Z79.899 Other long term (current) drug therapy; Z79.82 Long term (current) use of aspirin; Z79.891 Long term (current) use of opiate analgesic; Z88.1 Allergy status to other antibiotic agents; Z88.2 Allergy status to sulfonamides; F17.210 Nicotine dependence, cigarettes, uncomplicated
CPT/HCPCS: 36415; 71275; 80047; 81001; 84703; 85025; 96360; 96361; 99284; Q9967

== ENCOUNTER → 2019-01-15 | Outpatient (REF) | payer OTHER ==
[~2019-01-15] MED LIST changes: +AMMO12CR7; +NITR100C2; +TRAZ-163; +VENTAER INH
== END ==
LOC: M LAB REF 14:52
PROVIDERS: ATTEND Otolaryngology
DX: D14.0 Benign neoplasm of middle ear, nasal cavity and accessory sinuses (principal)

== ENCOUNTER → 2019-02-12 | Outpatient (CLI) | payer OTHER | LOC: M RAD 15:31 | PROVIDERS: ATTEND Surgery Vascular Surgery | DX: Z53.9 Procedure and treatment not carried out, unspecified reason (principal) ==

== ENCOUNTER → 2019-02-12 | Outpatient (CLI) | payer OTHER | LOC: M LAB 15:26 | PROVIDERS: ATTEND Internal Medicine | DX: M05.9 Rheumatoid arthritis with rheumatoid factor, unspecified (principal) ==

== ENCOUNTER → 2019-04-12 | Outpatient (CLI) | payer OTHER ==
[~2019-04-12] MED LIST changes: -BUPR300T34 PO; +BUPR300T92 PO; +METHACHOLINE KIT (J7674) INH ONE; -TRAZ-163; +TRAZ-257
--- NOTE | 2019-04-12 14:13 | PFTRPT ---
Site: [facility], [address] [place] [address], [id number] ID: [id number] Name: ARLENE FONSECA Visit Date: 04/12/2019 Second ID: [id number] Referring Doctor: Pratibha Syed MD Reviewing Doctor: Jozef Ford MD Clinical Nursing Instructor: Lisa Weston Age: 33 : 1985 Sex: Female Race: Height: 63.00 Inches Weight: 174.00 Lbs BSA: 1.82 Order IDs: [id number] Requested Test(s): <RESP-PFT.DLCO> Diagnosis: R06.09 Post Test Comments: The results of this test are questionable due to the patient's inability to perform the maneuvers according to the ATS standards, more specifically during the plethysmography portion of the study. Pt was given four puffs of albuterol for postbronchodilator. Review Status: Not Reviewed Pre-Bronch Post-Bronch Pred Actual %Pred Actual %Chng SPIROMETRY FVC (L) 3.63 3.90 107 4.06 3 FEV1 (L) 3.03 2.67 88 2.97 11 FEV1/FVC (%) 84 68 81 73 6 FEF 25% (L/sec) 5.50 4.25 77 4.71 10 FEF 50% (L/sec) 4.39 2.47 56 3.05 23 FEF 75% (L/sec) 1.81 0.78 43 1.22 55 FEF 25-75% (L/sec) 3.28 1.97 60 2.56 29 FEF Max (L/sec) 6.86 4.25 61 4.74 11 FIVC (L) 3.83 3.63 -5 FIF 50% (L/sec) 4.05 2.85 70 2.28 -20 FIF Max (L/sec) 3.04 2.65 -12 MVV (L/min) 104 77 73 Expiratory Time (sec) 8.57 7.74 -9 Back Extrap Vol (L) 0.08 0.11 27 Time To FEFmax (sec) 0.217 0.184 -14 LUNG VOLUMES SVC (L) 3.49 3.90 111 IC (L) 2.22 2.97 133 ERV (L) 1.27 0.93 72 TGV (L) 2.68 2.67 99 RV (Pleth) (L) 1.41 1.75 123 TLC (Pleth) (L) 4.90 5.65 115 RV/TLC (Pleth) (%) 28 31 110 DIFFUSION DLCOunc (ml/min/mmHg) 24.12 19.72 81 DLCOcor (ml/min/mmHg) 24.12 19.32 80 DL/VA (ml/min/mmHg/L) 4.92 3.82 77 VA (L) 4.90 5.05 103 BHT (sec) 10.62 IVC (L) 3.79 TLC (SB) (L) 5.20 AIRWAYS RESISTANCE Raw (cmH2O/L/s) 1.86 1.50 80 Gaw (L/s/cmH2O) 1.03 0.70 67 sRaw (cmH2O*s) 4.76 5.23 109 sGaw (1/cmH2O*s) 0.20 0.19 96 BLOOD GASES Hgb (gm/dL) 14.1
== END ==
LOC: M CARPUL 13:19
PROVIDERS: ATTEND Family Medicine
DX: R06.09 Other forms of dyspnea (principal)
CPT/HCPCS: 88738; 94060; 94726; 94729; J7674

== ENCOUNTER → 2019-04-28 | Outpatient (CLI) | payer OTHER ==
--- NOTE | 2019-04-28 10:26 | PFTRPT ---
Visit Date: 04/28/2019 Referring Doctor: Pratibha Syed MD Height: 63.00 Inches Weight: 174.00 Lbs BSA: 1.82 Diagnosis: R06.09 Study of excellent technical quality. Under protocol, methacholine was administered. At a dose of 2.5 mg or 13.875 CDUs, a 49% decline in the FEV1 was noted. PC of 0.41 is significant. Flow rates did not quite return to baseline post-bronchodilator administration. IMPRESSION: Positive methacholine challenge study. MTDD
== END ==
LOC: M CARPUL 04-19 12:59
PROVIDERS: ATTEND Family Medicine
DX: R06.09 Other forms of dyspnea (principal)

== ENCOUNTER → 2019-06-16 | Outpatient (CLI) | payer OTHER ==
[~2019-06-16] MED LIST changes: -METHACHOLINE KIT (J7674) INH ONE
== END ==
LOC: M RAD 13:12
PROVIDERS: ATTEND Plastic Surgery Surgery of the Hand
DX: K43.9 Ventral hernia without obstruction or gangrene (principal)

== ENCOUNTER → 2019-06-23 | Outpatient (CLI) | payer OTHER ==
--- NOTE | 2019-06-23 10:39 | REP ---
MRI BRAIN WITHOUT CONTRAST: HISTORY: Migraines. No comparison brain imaging. TECHNIQUE: Axial and sagittal imaging planes are utilized for T1 and T2-weighted scans. Sequences include spin-echo, fast spin echo, FLAIR, and diffusion weighted sequences. MRI FINDINGS: There is 9 mm of tonsillar ectopia visible on midline sagittal imaging at the level of the foramen magnum consistent with Arnold-Chiari type I malformation. There is some crowding of the spinal medullary junction but no kinking is seen. No renay compression is noted. However, there is a low T1 high T2 signal intensity cyst in the upper cervical spinal cord at the C1-C2 level. This measures 9 mm in craniocaudal span by 8 mm anterior to posterior by 6 mm right to left. This segment of the spinal cord appears slightly expanded. No bony calvarial lesion is seen. The lateral, third, and fourth ventricles are normal in size and position. No intracranial malformation is seen. Calderon-white differentiation pattern is normal above and below the tentorium. There is no evidence of intracranial mass lesion. At the skull base, it can be seen that the left vertebral artery is larger and dominant compared to the smaller right vertebral artery. No other vascular abnormality. Diffusion weighted scans show no evidence of restricted diffusion to suggest acute ischemia. No extra-axial fluid collection or midline shift is seen. IMPRESSION: 9 mm of tonsillar ectopia consistent with Arnold-Chiari type I malformation. There is some crowding at the spinal medullary junction but no kinking. A 9 mm intramedullary cyst is seen in the upper cervical cord at the C1-2 level however. Spine MRI imaging without and with IV gadolinium is recommended. No intracranial abnormality. Electronically Signed by Edilberto Fam MD 06/23/2019 01:07 P
== END ==
LOC: M RAD 09:15
PROVIDERS: ATTEND Family Medicine
DX: G93.89 Other specified disorders of brain (principal); G43.109 Migraine with aura, not intractable, without status migrainosus

== ENCOUNTER → 2019-07-09 | Outpatient (CLI) | payer OTHER ==
[2019-07-09 15:57] LABS: BLOOD UREA NITROGEN 7 MG/DL (7-18); CALCIUM LEVEL 8.8 MG/DL (8.5-10.1); CARBON DIOXIDE LEVEL 25 MEQ/L (21-32); CHLORIDE LEVEL 110 MEQ/L (98-107); CREATININE FOR GFR 0.66 MG/DL (0.55-1.30); GLOMERULAR FILTRATION RATE > 60.0 (>60); GLUCOSE, FASTING 95 MG/DL (70-100); POTASSIUM SERUM 4.8 MEQ/L (3.5-5.1); SODIUM LEVEL 140 MEQ/L (136-145)
== END ==
LOC: M LAB 15:12
PROVIDERS: ATTEND Family Medicine
DX: E11.69 Type 2 diabetes mellitus with other specified complication (principal)

== ENCOUNTER → 2019-07-09 | Outpatient (CLI) | payer OTHER ==
[~2019-07-09] MED LIST changes: +PROHANCE 279.3MG/ML 15ML VIAL (A9576) As Ordered ONE
--- NOTE | 2019-07-10 09:35 | REP ---
MRI cervical spine without and with IV gadolinium: History: Spinal cord cysts. Comparison brain MRI study June 23, 2019 demonstrated tonsillar ectopia consistent with Arnold Chiari type 1 malformation and an intramedullary cyst in the upper cervical cord at the C1-2 level. No comparison cervical spine imaging. Technique: Sagittal and axial T1 and T2-weighted scans are acquired in the usual fashion with and without fat saturation. Sequences include spin echo, turbo spin-echo, and STIR imaging sequences. Gadolinium enhancement dose is 14 mL of intravenous ProHance. MRI findings: Tonsillar ectopia and some crowding is again seen at the spinal medullary junction. No kinking or renay cord compression is seen. The intramedullary cyst identified on the brain MRI study is again seen. This is an elongate lesion with a craniocaudal dimension of 3.5 cm extending from the upper portion of the dens to the C3-4 disc level. It is rostral and is larger than its caudal end. At the rostral end the lesion measures 8 mm anterior to posterior by 7 mm right to left. Distally, these measurements taper to 3 x 3 mm. There is no evidence of abnormal intramedullary contrast enhancement associated with the lesion. No abnormal extra spinal enhancement is seen. The upper cervical cord is felt to be somewhat enlarged by the central intramedullary lesion. There is straightening of the normal cervical lordosis. There are mild degenerative disc changes at C4-5 through C6-7 and at T1-T2. At the C6-7 disc level, axial and sagittal images demonstrate a left posterior broad-based focal disc protrusion compressing the left ventral margin of the thecal sac and flattening the left ventral margin of the cord. There is associated left-sided neural foraminal narrowing. At C5-C6, there is a small right-sided focal disc protrusion effacing the ventral subarachnoid space but not contacting the cord. No foraminal narrowing is seen. The other intervertebral disc levels are unremarkable. Impression: 1. 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 Consider follow-up study to document stability over time in 6-12 months. 2. Left posterior C6-7 disc protrusion with associated left C6-7 neural foraminal narrowing. There is also a tiny right posterior disc protrusion at C5-6. Electronically Signed by Edilberto Fam MD 07/10/2019 10:12 A
== END ==
LOC: M RAD 14:58
PROVIDERS: ATTEND Family Medicine
DX: G96.8 Other specified disorders of central nervous system (principal)
CPT/HCPCS: 72156; A9576

== ENCOUNTER → 2020-01-03 | Outpatient (CLI) | payer OTHER ==
[~2020-01-03] MED LIST changes: -METF-791 PO; +METF-838 PO; -PROHANCE 279.3MG/ML 15ML VIAL (A9576) As Ordered ONE
--- NOTE | 2020-01-06 16:09 | REP ---
PELVIC SONOGRAPHY HISTORY: Irregular bleeding. FINDINGS: Transabdominal and transvaginal scanning are performed. Uterine dimensions are normal measured at 7.4 x 4.2 x 4.7 cm. Endometrial echo is 0.5 cm thick. No focal uterine mass is seen. No free fluid is noted. Normal ovaries are seen bilaterally. Right ovary measures 2.1 x 1.9 x 2.6 cm. Left ovarian dimensions are 2.2 x 1.5 x 2.1 cm. IMPRESSION: Normal pelvic sonography. MTDD
== END ==
LOC: M RAD 15:37
PROVIDERS: ATTEND Obstetrics & Gynecology
DX: N92.6 Irregular menstruation, unspecified (principal)

== ENCOUNTER → 2020-04-27 | Outpatient (REF) | payer OTHER ==
[2020-04-27 18:30] LABS: HCG, SERUM QUANTITATIVE < 1.0 MIU/ML
[2020-04-27 18:31] LABS: LUTEINIZING HORMONE 7.6 mIU/mL; PROLACTIN 8.5 NG/ML
[2020-04-27 18:32] LABS: FOLLICLE STIMULATING HORMONE 6.7 mIU/mL
[2020-04-27 19:12] LABS: HIV 1&2 SCREEN CENTAUR NEGATIVE (NEGATIVE)
[2020-04-27 19:42] LABS: CHLAMYDIA DNA AMPLIFICATION NEGATIVE (NEGATIVE); GC DNA AMPLIFICATION NEGATIVE (NEGATIVE)
[2020-04-29 17:08] LABS: TESTOSTERONE FREE (DIRECT) 1.2 pg/mL (0.0-4.2)
== END ==
LOC: M SFHCPLAZ 15:08
PROVIDERS: ATTEND Family Medicine
DX: Z11.3 Encounter for screening for infections with a predominantly sexual mode of transmission (principal); Z12.4 Encounter for screening for malignant neoplasm of cervix

== ENCOUNTER 2020-08-09 23:28 | Emergency (ER) | payer OTHER ==
[~2020-08-09] VITALS: Ht 160 cm; Wt 97.9 kg
[~2020-08-09 23:28] MED LIST changes: -AMMO12CR7; +AMMO12CR7 TOP
[2020-08-09] MEDS ORDERED: BUSP15TA47 PO (23:39)
[2020-08-09] MEDS ORDERED: KETO2CR TOP (23:39)
[2020-08-09] MEDS ORDERED: LAMO100T3 PO (23:39)
[2020-08-09] MEDS ORDERED: VRAY3CAP PO (23:39)
[2020-08-10] MEDS ORDERED: ACETAMINOPHEN TAB 650MG DOSE (2X325MG) PO ONE (00:10)
[2020-08-10] MEDS ORDERED: CEPH500C PO (00:43)
[2020-08-10] MEDS ORDERED: NEUR300C PO (00:43)
[2020-08-10] MEDS ORDERED: CEPHALEXIN 500 MG CAP PO ONE (00:45)
[2020-08-10] MEDS ORDERED: GABAPENTIN 300 MG CAP PO ONE (00:45)
[2020-08-10 01:00] VITALS: BP 113/58
[2020-08-10 01:08] LABS: BASO # 0.1 10^3/uL (0.0-0.2); BASO % 0.5 % (0.0-1.0); EOS # 0.2 10^3/uL (0.0-0.5); EOS % 1.7 % (0.0-3.0); HEMATOCRIT 38.4 % (36.0-47.0); HEMOGLOBIN 12.3 g/dl (12.0-15.5); LYMPH % 27.4 % (24.0-44.0); MEAN CORPUSCULAR HEMOGLOBIN 26.9 pg (27.0-33.0); MEAN CORPUSCULAR VOLUME 83.8 fl (80.0-96.0); MONO # 0.9 10^3/uL (0.0-0.8); NEUTROPHILS # 6.9 10^3/uL (1.5-8.5); NEUTROPHILS % 62.1 % (36.0-66.0); PLATELET COUNT, AUTOMATED 193 10^3/uL (150-450); RED BLOOD COUNT 4.58 10^6/uL (4.00-5.40)
[2020-08-11] MEDS ORDERED: GABA-282 PO (19:22)
[2020-08-11] MEDS ORDERED: CEPH500C PO (19:22)
[2020-08-11] MEDS ORDERED: SUBO8MIS SL (19:22)
[2020-08-11] MEDS ORDERED: LAMO150T3 PO (19:22)
[2020-08-11] MEDS ORDERED: PROP10TA56 PO (19:22)
[2020-08-11] MEDS ORDERED: VENTAER INH (19:22)
== END 2020-08-10 01:15 | disposition home or self-care (01) ==
LOC: M ED 23:28
DX: L03.311 Cellulitis of abdominal wall (principal); F17.200 Nicotine dependence, unspecified, uncomplicated; Z88.2 Allergy status to sulfonamides; Z79.899 Other long term (current) drug therapy

== ENCOUNTER 2020-08-11 16:20 | Inpatient (IN) | payer OTHER ==
[~2020-08-11] VITALS: Ht 162.6 cm; Wt 100.3 kg
[~2020-08-11 16:20] MED LIST changes: +BUSP15TA47 PO; +CEPH500C PO; +KETO2CR TOP; +LAMO100T3 PO; +NEUR300C PO; +VRAY3CAP PO
[2020-08-11] MEDS ORDERED: NS 1,000 ML IV ONE (18:30)
[2020-08-11] MEDS ORDERED: KETOROLAC 30 MG/ML 1ML VIAL IV ONE (18:30)
[2020-08-11] MEDS ORDERED: ACETAMINOPHEN 325 MG TAB PO ONE (18:35)
[2020-08-11] MEDS ORDERED: VENTAER INH (19:22)
[2020-08-11] MEDS ORDERED: LAMO150T3 PO (19:22)
[2020-08-11] MEDS ORDERED: CEPH500C PO (19:22)
[2020-08-11] MEDS ORDERED: PROP10TA56 PO (19:22)
[2020-08-11] MEDS ORDERED: GABA-282 PO (19:22)
[2020-08-11] MEDS ORDERED: SUBO8MIS SL (19:22)
[2020-08-11 19:43] LABS: BASO % 0.3 % (0.0-1.0); EOS # 0.1 10^3/uL (0.0-0.5); EOS % 0.4 % (0.0-3.0); HEMATOCRIT 38.4 % (36.0-47.0); HEMOGLOBIN 12.4 g/dl (12.0-15.5); LYMPH # 2.6 10^3/uL (1.5-5.0); LYMPH % 20.5 % (24.0-44.0); MEAN CORPUSCULAR HEMOGLOBIN 27.1 pg (27.0-33.0); MEAN CORPUSCULAR HGB CONC 32.3 g/dl (32.0-36.5); MEAN CORPUSCULAR VOLUME 83.8 fl (80.0-96.0); MONO % 8.3 % (2.0-8.0); NEUTROPHILS # 8.8 10^3/uL (1.5-8.5); NEUTROPHILS % 70.1 % (36.0-66.0); PLATELET COUNT, AUTOMATED 192 10^3/uL (150-450); RED BLOOD COUNT 4.58 10^6/uL (4.00-5.40); WHITE BLOOD COUNT 12.6 10^3/uL (4.0-10.0)
[2020-08-11 20:06] LABS: ERYTHROCYTE SEDIMENTATION RATE 34 mm/hr (0-20)
[2020-08-11 20:18] LABS: RSV AMPLIFICATION NEGATIVE (NEGATIVE)
[2020-08-11] MEDS ORDERED: ISOVUE-370 76% 100ML VIAL As Ordered ONE (20:30)
--- NOTE | 2020-08-11 21:49 | REPVR ---
PROCEDURE INFORMATION: Exam: CT Abdomen And Pelvis With Contrast Exam date and time: 08/11/2020 8:39 PM Age: 35 years old Clinical indication: Other: Abscess; Additional info: Abscess? Lower abdomen/pelvis TECHNIQUE: Imaging protocol: Computed tomography of the abdomen and pelvis with contrast. Radiation optimization: All CT scans at this facility use at least one of these dose optimization techniques: automated exposure control; mA and/or kV adjustment per patient size (includes targeted exams where dose is matched to clinical indication); or iterative reconstruction. Contrast material: ISOVUE 370; Contrast volume: 100 ml; Contrast route: INTRAVENOUS (IV); COMPARISON: CT ABD/PEL W/IV CONTRAST ONLY 07/16/2017 8:37 PM FINDINGS: Mediastinal space: Small hiatal hernia. Liver: Normal. No mass. Gallbladder and bile ducts: Normal. No calcified stones. No ductal dilation. Pancreas: Normal. No ductal dilation. Spleen: Normal. No splenomegaly. Adrenal glands: Normal. No mass. Kidneys and ureters: Normal. No hydronephrosis. Stomach and bowel: Unremarkable. No obstruction. No mucosal thickening. Appendix: No evidence of appendicitis. Intraperitoneal space: Unremarkable. No free air. No significant fluid collection. Vasculature: Unremarkable. No abdominal aortic aneurysm. Lymph nodes: Unremarkable. No enlarged lymph nodes. Urinary bladder: Unremarkable as visualized. Reproductive: 1.7 x 1.8 cm right ovarian cyst. Bones/joints: Unremarkable. No acute fracture. Soft tissues: There is a 3.8 x 5.9 x 5.2 cm fluid collection/abscess in the subcutaneous tissues of right lower anterior abdominal wall, and has increased from prior examination when it measures 2.5 x 3.5 x 3.4 cm. Other findings: IMPRESSION: Abscess/fluid collection in the right lower anterior abdominal wall subcutaneous tissues has increased in size measures 3.8 x 5.9 x 5.2 cm (APxTxCC), previously 2.5 x 3.5 x 3.4 cm. Electronically signed by: Johnny Hernandez On 08/11/2020 21:49:03 PM
[2020-08-11] MEDS ORDERED: VANCOMYCIN HCL 2,000 MG in IV FLUID PLACE HOLDER 1 EA IV ONE (22:15)
[2020-08-11] MEDS ORDERED: VANCOMYCIN HCL 1,000 MG, VIAL MATE ADAPTER 1 EACH in NS 250 ML IV ONE ×2 (22:20→23:20)
--- NOTE | 2020-08-11 22:32 | HPEPDOC ---
[facility] Medical History & Physical Date of Admission August 11, 2020 Date of Service: August 11, 2020 Primary Care Physician: TUCKER RENTERIA MD Attending Physician: YVON LIM MD History and Physical TIME OF SERVICE: 1020pm CHIEF COMPLAINT: abdominal pain HISTORY OF PRESENT ILLNESS: This 35 yr old F initially presented to the ER on Fri w c/o lower abdominal pain; yesterday she saw her PCP who started her on abx but the pt came to the ER bc the throbbing, aching pain was 10/10 in severity, radiated to her groin and was associated w n/v/f/c. She denied having pain w urination. REVIEW OF SYSTEMS: 12-point review of systems negative except as listed in HPI PAST MEDICAL/ SURGICAL HISTORY: Depression, Anxiety, Bipolar disorder, Hx of Hep C (in remission) hidradenitis suppurativa, Anemia, , LEEP SOCIAL HISTORY: + tobacco / - alcohol / remote hx of heroin, cocaine and THC use on suboxone / G3 (doesnt have custody of her children) FAMILY HISTORY: Cancer, CAD, DM, Graves dz ALLERGIES: Please see below. HOME MEDICATIONS: Please see below. PHYSICAL EXAMINATION: Vital Signs Date Time Temp Pulse Resp B/P (MAP) Pulse Ox O2 Delivery O2 Flow Rate FiO2 08/11/20 16:21 100.4 101 18 138/72 (94) 99 Room Air GENERAL APPEARANCE: well nourished and developed/ NAD HEENT: mild conjunctival injection / MMM&P CARDIOVASCULAR: RRR/NMR LUNGS: CTAB on RA ABDOMEN: contour obese / tender w palpation of lower abdomen MUSCULOSKELETAL: NCAT / EDEN x 4 INTEGUMENT: has hyperpigmented scars on lower abdomen and upper groin, the skin has +rubor, dalor and calor w multiple raised lesions NEUROLOGICAL: CN 2-12 intact / skin not dysarthric PSYCHIATRIC: A&Ox 3/ able to understand and follow all commands LABORATORY DATA: Immature Granulocyte % (Auto) 0.4, Neutrophils (%) (Auto) 70.1H, Lymphocytes (%) (Auto) 20.5L, Monocytes (%) (Auto) 8.3H, Eosinophils (%) (Auto) 0.4, Basophils (%) (Auto) 0.3, Neutrophils # (Auto) 8.8H, Lymphocytes # (Auto) 2.6, Monocytes # (Auto) 1.0H, Eosinophils # (Auto) 0.1, Basophils # (Auto) 0.0, Nucleated Red Blood Cells % (auto) 0.0, Erythrocyte Sedimentation Rate 34H, Lactic Acid Level 0.9, C-Reactive Protein, Quantitative 10.00H, Coronavirus (COVID-19)(PCR) NEGATIVE, Influenza Type A (RT-PCR) NEGATIVE, Influenza Type B (RT-PCR) NEGATIVE, Respiratory Syncytial Virus (PCR) NEGATIVE 08/11/20 19:28: POC Glucose (Misc Panel) 98, POC Sodium (Misc Panel) 136, POC Potassium (Misc Panel) 3.8, POC Chloride (Misc Panel) 99, POC Total CO2 (Misc Panel) 29.0H, POC Blood Urea Nitrogen (Misc Panel 6L, POC Ionized Calcium (Misc Panel) 4.4L, POC Creatinine (Misc Panel) 0.9, POC Hematocrit (Misc Panel) 38.0 08/11/20 19:43: POC Beta HCG, Quantitative < 5.0 IMAGING: CT abd/pelvis IMPRESSION: Abscess/fluid collection in the right lower anterior abdominal wall subcutaneous tissues has increased in size measures 3.8 x 5.9 x 5.2 cm (APxTxCC), previously 2.5 x 3.5 x 3.4 cm. MICROBIOLOGY: respiratory panel neg ASSESSMENT: is a 35 yr old w Depression, Anxiety, Bipolar disorder, hidradenitis suppurativa, & Anemia who is admitted for what appears to be a flair of her hidradenitis suppurativa. PLAN: 1 Acute HS vs Abdominal wall cellulitis w abscesses She is not taking chronic meds Deny Hernandez discussed the case with ; I am not sure that he was informed that the pt had HS, nevertheless we will keep her NPO and c/w abx pending his evaluation to confirm the diagnosis Plan: c/w abx and IVF pending Gen Surg eval / if agrees that this is stage 2 HS the day time team may consider Derm consult to discuss switching the patient to an oral tetracycline, anti-andgrogenics and metformin per recs on U pToDate 2 SIRS likely reactive due to acute HS Sepsis due to cellulitis and abscesses is an alternative diagnosis Plan: IVF / c/w abx / f/u pancx results 3 Depression, Anxiety, Bipolar disorder Plan: Bupropion, Buspirone, Lamotrigine 4 Class 3 Obesity BMI 81.2 complicates care Plan: the patient can f/u w his or her PCP for sleep apnea screening, digital editor consult, to discuss staring Saxenda, which is indicated in patients with a BMI >27 with co-existing DM, HTN or dyslipidemia to help with weight control as an adjunct to exercise & referral to a Bariatric Surgeon / recommend cardiovascular exercise for 40 min 4-5 days a week 5 Tobacco Abuse Plan: nicotine patch / smoking cessation education 6 Hx of opiate abuse Plan: c/w suboxone DVT px w SCDs Dispo: home after at least 2 midnights stay Home Medications Scheduled Ammonium Lactate (Ammonium Lactate) 12% Cream..g., 1 APPLIC TOP DAILY APPLY TO FEET Buprenorphine HCl/Naloxone HCl (Suboxone 8 mg-2 mg Sl Film) 1 Each Film, 1 STRIP SL BID Bupropion HCl (Bupropion Xl) 300 Mg Tab, 300 MG PO DAILY Buspirone HCl (Buspirone HCl) 15 Mg Tablet, 15 MG PO BID Cariprazine HCl (Vraylar) 3 Mg Capsule, 3 MG PO DAILY Cephalexin (Cephalexin) 500 Mg Capsule, 500 MG PO QID Gabapentin (Gabapentin) 300 Mg Capsule, 300 MG PO TID Ketoconazole (Ketoconazole) 15 Gm Cream..g., 1 APPLIC TOP DAILY APPLY TO FEET Lamotrigine (Lamotrigine) 150 Mg Tablet, 150 MG PO DAILY Scheduled PRN Albuterol Sulfate (Ventolin Hfa) 18 Gm Hfa.aer.ad, 2 PUFFS INH QID PRN for SOB/WHEEZING Propranolol HCl (Propranolol HCl) 10 Mg Tablet, 10 MG PO BID PRN for ANXIETY Allergies Coded Allergies: Sulfa (Sulfonamide Antibiotics) (Verified Allergy, Severe, hives and throat closes, 08/09/20) vancomycin (Verified Allergy, Intermediate, Redness and infiltration over the area of administration, 08/12/20) A-FIB/CHADSVASC A-FIB History Current/History of A-Fib/PAF?: No Current PO Anticoag Therapy: No YVON LIM MD August 11, 2020 22:32
[2020-08-11] MEDS ORDERED: MOM 30ML SUSPENSION UDC PO PRN (22:35)
[2020-08-11] MEDS ORDERED: MAALOX 30 ML SUSP *UDC PO PRN (22:35)
[2020-08-11] MEDS ORDERED: NS 1,000 ML IV SCH (22:35)
[2020-08-11 23:52] LABS: HEMOGLOBIN A1c 5.6 %
[2020-08-12] MEDS ORDERED: BUPRENORPHINE/NALOXONE 8-2MG SUBLINGUAL TABLET(SUBOXONE) SL SCH (00:30)
[2020-08-12] MEDS ORDERED: ALBUTEROL 90 MCG/ACT 8GM HFA INHALER INH PRN (00:30)
[2020-08-12] MEDS ORDERED: PROPRANOLOL 10 MG TAB PO PRN (00:30)
[2020-08-12 00:52] VITALS: BP 112/52
[2020-08-12] MEDS ORDERED: HYALURONIDASE 150UNIT/ML 1ML VIAL (AMPHADASE) SC ONE (01:29)
[2020-08-12 02:04] LABS: INR 1.11; PROTHROMBIN TIME 14.5 SECONDS (12.5-14.3)
[2020-08-12 02:05] LABS: PARTIAL THROMBOPLASTIN TIME 35.8 SECONDS (24.2-38.5)
[2020-08-12] MEDS: GABAPENTIN 300 MG CAP PO SCH ×4 (02:12→21:24)
[2020-08-12] MEDS: NICOTINE 21MG/24HR 1 EA TRANSDERMAL TD SCH ×2 (02:12→21:24)
[2020-08-12] MEDS: ACETAMINOPHEN TAB 650MG DOSE (2X325MG) PO PRN (02:13)
[2020-08-12] MEDS: BUPRENORPHINE/NALOXONE 8-2MG SUBLINGUAL TABLET(SUBOXONE) SL SCH ×3 (02:26→21:24)
[2020-08-12] MEDS: busPIRone 5 MG TAB PO SCH ×3 (02:41→21:24)
[2020-08-12] MEDS ORDERED: NS 1,000 ML IV ONE (03:00)
[2020-08-12] MEDS ORDERED: diphenhydrAMINE 50MG/ML VIAL (J1200) IV ONE (03:00)
[2020-08-12] MEDS: PIPERACILLIN/TAZOBACTAM SOD 4.5 GM in D5W MINI-BAG PLUS 50 ML IV SCH ×4 (04:13→21:24)
[2020-08-12 06:00] VITALS: BP 124/63
[2020-08-12 06:25] LABS: HEMATOCRIT 34.7 % (36.0-47.0); MEAN CORPUSCULAR HEMOGLOBIN 26.9 pg (27.0-33.0); MEAN CORPUSCULAR HGB CONC 31.7 g/dl (32.0-36.5); MEAN CORPUSCULAR VOLUME 84.8 fl (80.0-96.0); PLATELET COUNT, AUTOMATED 152 10^3/uL (150-450); RED BLOOD COUNT 4.09 10^6/uL (4.00-5.40); WHITE BLOOD COUNT 10.4 10^3/uL (4.0-10.0)
[2020-08-12 06:45] LABS: BLOOD UREA NITROGEN 8 MG/DL (7-18); CALCIUM LEVEL 7.9 MG/DL (8.5-10.1); CARBON DIOXIDE LEVEL 26 MEQ/L (21-32); CHLORIDE LEVEL 107 MEQ/L (98-107); CREATININE FOR GFR 0.78 MG/DL (0.55-1.30); GLOMERULAR FILTRATION RATE > 60.0 (>60); GLUCOSE, FASTING 105 MG/DL (70-100); POTASSIUM SERUM 3.7 MEQ/L (3.5-5.1); SODIUM LEVEL 138 MEQ/L (136-145)
[2020-08-12] MEDS ORDERED: KETOROLAC 30 MG/ML 1ML VIAL IV ONE (07:00)
[2020-08-12 08:30] VITALS: BP 116/58
[2020-08-12] MEDS: buPROPion **XL** TABLET 150MG (WELLBUTRIN XL) PO SCH (08:51)
[2020-08-12] MEDS: lamoTRIgine 100MG TAB PO SCH (08:52)
[2020-08-12] MEDS: CARIPRAZINE 3MG CAPSULE (VRAYLAR) PO SCH (08:54)
[2020-08-12] MEDS ORDERED: VANCOMYCIN HCL 1,000 MG, VIAL MATE ADAPTER 1 EACH in NS 250 ML IV SCH (10:00)
[2020-08-12 11:41] VITALS: BP 130/65
[2020-08-12] MEDS ORDERED: BUPIVACAINE HCL 0.25% 30ML VIAL As Ordered ONE (11:42)
[2020-08-12] MEDS ORDERED: LIDOCAINE 1% SDV 30ML VIAL As Ordered ONE (11:42)
--- NOTE | 2020-08-12 12:34 | CR.PDOC ---
General Surgery Consultation Date of Consultation 08/12/20 History and Physical CONSULT REPORT FOR: hospitalist service REASON FOR CONSULTATION: abdominal wall abscess HISTORY OF PRESENT ILLNESS: Patient is a 35-year-old female, moderately obese BMI of 37 with also history of hydradenitis suppurativa, smoker has presented twice to the emergency room with about a two-week history of redness, swelling that has progressed on her right lower abdomen/right groin area. According to the patient started off as on the regular small pustules on her right groin and then she noted the redness spreading to her lower abdomen. She reports intermittent low-grade fever especially towards the latter part of the week. She was seen initially at the emergency room on August 09. She was noted to have a small abscess distended the emergency room physician felt could've been treated with oral antibiotics with its small size. An 8 she was started on cephalexin. She followed up with her primary doctor. De-airing evening she presented back to the emergency room with increasing throbbing pain over the inflamed area also had low-grade fever and subsequently she was admitted. She had a repeat CT showing increase in size of the abscess. PAST MEDICAL HISTORY: 1. Diabetes, [id number] 2. Hydradenitis suppurativa 3. Moderate obesity BMI of 37 . 4. Bipolar disorder 5. Remote history of hepatitis C PAST SURGICAL HISTORY: INCLUDES: 1. section 2. LEEP. ALLERGIES: Please see below. HOME MEDICATIONS: Please see below. REVIEW OF SYSTEMS: GENERAL: Patient reports a two-week history of pain, redness swelling under her right groin, right lower abdomen, associated low-grade fever. NECK: Denies any neck pain CARDIOVASCULAR: Denies chest pain and palpitations. SKIN: His known history of hydradenitis. He will for which she has to small pustules, chronic scaring, denies any prior MRSA infection. NEUROLOGIC: Denies headache, stroke and transient ischemic attack. PSYCHIATRIC: Has history of bipolar disorder. HEMATOLOGY/ONCOLOGY: Denies bleeding or clotting disorder. HEART: Denies any chest pains, palpitations, paroxysmal dyspnea, orthopnea. PULMONARY: Denies chronic cough, dyspnea and wheezing. GASTROINTESTINAL: Denies rectal bleeding, family history of colon cancer, constipation, diarrhea, dysphagia, heartburn and jaundice. GENITOURINARY: Denies dysuria, frequency, hematuria and nocturia. ENDOCRINE: Denies polydipsia, polyphagia, polyuria, heat or cold intolerance. INFECTIOUS: Has been on cephalexin as outpatient. NUTRITION: Reports fair appetite. PHYSICAL EXAMINATION: VITALS SIGNS: Please see below. GENERAL APPEARANCE: Patient seen laying in bed, pleasant and cooperative, does not look to be toxic in appearance. SKIN: Warm and dry. There is a wide area of redness over the right lower pannus extending slightly to the groin and mons pubis. Wide area of induration underneath. Some portions along the area of redness has thinning, skin. No active drainage. Tender on palpation. HEENT: Normocephalic, atraumatic. Tancred palpebral conjunctiva, anicteric sclerae. Lips and mucosa appear moist. NECK: Supple, no thyromegaly. No obvious jugular venous distention. LUNGS: Clear to auscultation bilaterally. No wheezing appreciated. HEART: No chest wall abnormalities. Regular rate and rhythm with no murmurs appreciated. ABDOMEN: Abdomen is obese, soft, nondistended. Tender around the area of redness, she is a prior Pfannenstiel incision. EXTREMITIES: Extremities have no deformities. No edema identified ANCILLARIES: . LABORATORY DATA: Please see below. IMAGING STUDIES: . She has had 2 CT scans of the abdomen and pelvis demonstrating an enlarging abscess as well as skin soft tissue induration IMPRESSION AND PLAN: Abdominal wall cellulitis, soft tissue induration and abscess over the right lower abdomen/right pannus, right groin area and slightly towards the right of the mons pubis. Does not look to be necrotizing soft tissue infection. Does not look toxic. She does have a focus of abscess that appears to be enlarging. She has been started on IV antibiotics. L bring her to the operating room for inci roel and drainage of the abscess. I explained to her that we'll make an incision big enough to allow for drainage and evaluation of the cavity as well as 4 packing and easier dressing changes. She has had chronic scaring and prior pustules secondary to hidradenitis suppurativa but nothing seems to be active right now save for a area of soft tissue induration cellulitis. Further recommendations after surgery. Vital Signs Vital Signs Date Time Temp Pulse Resp B/P (MAP) Pulse Ox O2 Delivery O2 Flow Rate FiO2 08/12/20 11:41 98.2 78 130/65 (86) 97 Room Air 08/12/20 08:30 14 I&Os I&O- Last 24 Hours up to 6 AM 08/12/20 06:00 Intake Total 1760 ml Output Total 0 ml Balance 1760 ml Laboratory Data Labs 24H Laboratory Tests 2 08/11/20 19:11: Immature Granulocyte % (Auto) 0.4, Neutrophils (%) (Auto) 70.1H, Lymphocytes (%) (Auto) 20.5L, Monocytes (%) (Auto) 8.3H, Eosinophils (%) (Auto) 0.4, Basophils (%) (Auto) 0.3, Neutrophils # (Auto) 8.8H, Lymphocytes # (Auto) 2.6, Monocytes # (Auto) 1.0H, Eosinophils # (Auto) 0.1, Basophils # (Auto) 0.0, Nucleated Red Blood Cells % (auto) 0.0, Erythrocyte Sedimentation Rate 34H, Estimated Mean Plasma Glucose 114H, Hemoglobin A1c 5.6, Lactic Acid Level 0.9, C-Reactive Protein, Quantitative 10.00H, Coronavirus (COVID-19)(PCR) NEGATIVE, Influenza Type A (RT-PCR) NEGATIVE, Influenza Type B (RT-PCR) NEGATIVE, Respiratory Syncytial Virus (PCR) NEGATIVE 08/11/20 19:28: POC Glucose (Misc Panel) 98, POC Sodium (Misc Panel) 136, POC Potassium (Misc Panel) 3.8, POC Chloride (Misc Panel) 99, POC Total CO2 (Misc Panel) 29.0H, POC Blood Urea Nitrogen (Misc Panel 6L, POC Ionized Calcium (Misc Panel) 4.4L, POC Creatinine (Misc Panel) 0.9, POC Hematocrit (Misc Panel) 38.0 08/11/20 19:43: POC Beta HCG, Quantitative < 5.0 08/12/20 01:42: Lactic Acid Level 0.6, Prothrombin Time 14.5H, Prothromb Time International Ratio 1.11, Activated Partial Thromboplast Time 35.8 08/12/20 03:06: Methicillin-Resist S.aureus DNA PCR NOT DETECTED 08/12/20 05:56: Nucleated Red Blood Cells % (auto) 0.0, Anion Gap 5L, Glomerular Filtration Rate > 60.0, Calcium Level 7.9L 08/12/20 06:06: Bedside Glucose (Misc Panel) 107H 08/12/20 11:41: Bedside Glucose (Misc Panel) 107H CBC/BMP Laboratory Tests 08/11/20 19:11 08/12/20 05:56 Microbiology Microbiology 08/12/20 Blood Culture, Received Pending 08/11/20 Blood Culture, Received Pending 08/11/20 Blood Culture, Received Pending Home Medications Scheduled Ammonium Lactate (Ammonium Lactate) 12% Cream..g., 1 APPLIC TOP DAILY, (Reported) APPLY TO FEET Buprenorphine HCl/Naloxone HCl (Suboxone 8 mg-2 mg Sl Film) 1 Each Film, 1 STRIP SL BID, (Reported) Bupropion HCl (Bupropion Xl) 300 Mg Tab, 300 MG PO DAILY, (Reported) Buspirone HCl (Buspirone HCl) 15 Mg Tablet, 15 MG PO BID, (Reported) Cariprazine HCl (Vraylar) 3 Mg Capsule, 3 MG PO DAILY, (Reported) Cephalexin (Cephalexin) 500 Mg Capsule, 500 MG PO QID, (Reported) Gabapentin (Gabapentin) 300 Mg Capsule, 300 MG PO TID, (Reported) Ketoconazole (Ketoconazole) 15 Gm Cream..g., 1 APPLIC TOP DAILY, (Reported) APPLY TO FEET Lamotrigine (Lamotrigine) 150 Mg Tablet, 150 MG PO DAILY, (Reported) Scheduled PRN Albuterol Sulfate (Ventolin Hfa) 18 Gm Hfa.aer.ad, 2 PUFFS INH QID PRN for SOB/WHEEZING, (Reported) Propranolol HCl (Propranolol HCl) 10 Mg Tablet, 10 MG PO BID PRN for ANXIETY, (Reported) Allergies Coded Allergies: Sulfa (Sulfonamide Antibiotics) (Verified Allergy, Severe, hives and throat closes, 08/09/20) vancomycin (Verified Allergy, Intermediate, Redness and infiltration over the area of administration, 08/12/20) HUNTER HERNANDEZ MD August 12, 2020 12:34
--- NOTE | 2020-08-12 12:59 | IPNPDOC ---
Text Note Date of Service The patient was seen on 08/12/20. NOTE Subjective: -No acute complaints Objective: GENERAL APPEARANCE: well nourished and developed, NAD HEENT: Clear sclerae, MMM CARDIOVASCULAR: RRR, no m/r/g LUNGS: CTAB on RA ABDOMEN: Obese, normoactive sounds, tender w palpation of lower abdomen MUSCULOSKELETAL: NCAT / EDEN x 4 INTEGUMENT: has hyperpigmented scars on lower abdomen and upper groin, the skin has +rubor, dalor and calor w multiple raised lesions NEUROLOGICAL: CN 2-12 intact, skin not dysarthric PSYCHIATRIC: A&Ox 3, able to understand and follow all commands LABORATORY DATA: Reviewed WBC 10.4 Hgb 11 Platelets 152 Na 138 K 3.7 Cr 0.78 CRP 10 IMAGING: CT abd/pelvis IMPRESSION: Abscess/fluid collection in the right lower anterior abdominal wall subcutaneous tissues has increased in size measures 3.8 x 5.9 x 5.2 cm (APxTxCC), previously 2.5 x 3.5 x 3.4 cm. MICROBIOLOGY: respiratory panel neg ASSESSMENT: is a 35 yr old w Depression, Anxiety, Bipolar disorder, hidradenitis suppurativa, & Anemia who is admitted for what appears to be a flair of her hidradenitis suppurativa. 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, to discuss starting Saxenda, which is indicated in patients with a BMI >27 with co- existing DM, HTN or dyslipidemia to help with weight control as an adjunct to exercise & referral to a Bariatric Surgeon / recommend cardiovascular exercise for 40 min 4-5 days a week 4 Tobacco Abuse -nicotine patch -smoking cessation education provided 5 Hx of opiate abuse -c/w suboxone DVT px w SCDs Dispo: home after at least 2 midnights stay VS,Fishbone, I+O VS, [place], I+O Laboratory Tests 08/11/20 19:11 08/12/20 05:56 Vital Signs Date Time Temp Pulse Resp B/P (MAP) Pulse Ox O2 Delivery O2 Flow Rate FiO2 08/12/20 06:00 99.4 84 18 124/63 (83) 94 Room Air I&O- Last 24 Hours up to 6 AM 08/12/20 06:00 Intake Total 1760 ml Output Total 0 ml Balance 1760 ml ROSIE AGUIAR MD August 12, 2020 09:41
[2020-08-12] MEDS ORDERED: fentaNYL 100 MCG/2 ML INJECTION (J3010) As Ordered ONE (13:19)
[2020-08-12] MEDS ORDERED: MIDAZOLAM INJ 2MG/2ML VIAL (J2250 PER 1MG) As Ordered ONE (13:19)
[2020-08-12] MEDS ORDERED: propofoL 200 MG/20 ML VIAL As Ordered ONE ×2 (13:19→13:31)
[2020-08-12] MEDS ORDERED: IBUPROFEN 600MG TAB PO PRN ×2 (13:45→20:00)
[2020-08-12] MEDS ORDERED: LR 1,000 ML IV SCH (13:55)
[2020-08-12] MEDS ORDERED: ONDANSETRON 4MG/2ML VIAL IV PRN (13:55)
[2020-08-12] MEDS ORDERED: METOCLOPRAMIDE INJ 10MG/2ML VIAL (J2765 PER 1) IV PRN (13:55)
--- NOTE | 2020-08-12 13:55 | ROOPDOC ---
[facility] Report Of Operation Report of Operation DATE OF PROCEDURE: 08/12/20 PREPROCEDURE DIAGNOSES: Cellulitis and abscess right lower abdominal wall and the right groin. POSTPROCEDURE DIAGNOSES: Cellulitis and abscess, possibly infected chronic seroma right lower abdominal wall and right groin. PROCEDURE: Incision and drainage of abscess right lower abdominal wall and right groin, 6 x 5 cm cavity. SURGEON: Johnson Patrick MD ANESTHESIA: Local anesthesia qith 1% lidocaine mixed equally with 1/4% Marcaine, monitored anesthesia care. ESTIMATED BLOOD LOSS: Approximately 10 mL. COMPLICATIONS: None. REMARKS: 35 female, moderately obese, diabetic, with prior history of hydradenitis suppurativa presenting with a two-week history of enlarging redness, swelling on her right lower pannus. PROCEDURE NOTE: A 6 x 5 cm cavities noted. This is epithelialized capsule Mason chronic seroma. The right hand side of her then and still incision from her section. Foul-smelling but thin purulent fluid is noted. Cultures were sent DESCRIPTION OF PROCEDURE: Patient has been receiving Zosyn and also has received vancomycin since admission to the hospital last night. She was brought to the operating room, placed supine on the table. Compression devices placed on both lower extremities were DVT prophylaxis. Monitoring leads were placed. She was provided oxygen via nasal cannula. IV sedation was then started. Her right lower abdomen and groin was prepped with Betadine and sterile drapes were placed.We paused for a surgical timeout using both pre-incision safety checklist to verify correct patient, procedure site and additional clinical information prior to beginning the procedure She has a wide area of erythema on the right lower pannus which extends to the right groin area along the right side of her Pfannenstiel incision. He has evidence of chronic scars from prior pustules from her hydradenitis. The underlying soft tissue appears thickened and indurated. The whole right lower pannus appears boggy. Since being started with antibiotics erythema seems to be receding some I liberally infiltrated the midportion of the area of induration with a mixture of 1% lidocaine and 1/4% Marcaine in the skin and the subcutaneous tissue and then created a cruciate skin incision roughly about 5-6 cm x 3 cm to open up the skin and thickened soft tissue and immediately thought this foul-smelling purulent but then liquid. Roughly about 20 or 30 mL screw drained. I swabbed the collection for Gram stain and culture. After evacuating the whole cavity had palpated around and there seems to be an intact single cavity. When visualized there is a epithelialized capsule surrounding this cavity speaks most probably a chronic seroma may be related to her Pfannenstiel incision. I debrided the epithelialized capsule taking most of the posterior wall. This was temporarily packed and checked for hemostasis we then irrigated and I left a 1 inch iodoform packing, bulky gauze dressing and AVD pads to cover the incision. She tolerated the procedure well, all what was awakened and returned to recovery room in stable condition. . JOHNSON PATRICK MD August 12, 2020 13:55
[2020-08-12] MEDS ORDERED: ACETAMINOPHEN TAB 650MG DOSE (2X325MG) PO PRN (14:00)
[2020-08-12] MEDS ORDERED: KETOROLAC 30 MG/ML 1ML VIAL IV PRN (14:05)
[2020-08-12 14:15] VITALS: BP 126/66
[2020-08-12 22:58] VITALS: BP 123/63
[2020-08-13] MEDS: PIPERACILLIN/TAZOBACTAM SOD 4.5 GM in D5W MINI-BAG PLUS 50 ML IV SCH ×4 (02:42→22:53)
[2020-08-13 06:43] VITALS: BP 112/70
[2020-08-13] MEDS: lamoTRIgine 100MG TAB PO SCH (08:56)
[2020-08-13] MEDS: BUPRENORPHINE/NALOXONE 8-2MG SUBLINGUAL TABLET(SUBOXONE) SL SCH ×2 (08:57→20:21)
[2020-08-13] MEDS: CARIPRAZINE 3MG CAPSULE (VRAYLAR) PO SCH (08:57)
[2020-08-13] MEDS: GABAPENTIN 300 MG CAP PO SCH ×3 (08:57→20:21)
[2020-08-13] MEDS: buPROPion **XL** TABLET 150MG (WELLBUTRIN XL) PO SCH (08:57)
[2020-08-13] MEDS: busPIRone 5 MG TAB PO SCH ×2 (08:57→20:21)
[2020-08-13 10:01] LABS: HEMATOCRIT 31.4 % (36.0-47.0); HEMOGLOBIN 9.8 g/dl (12.0-15.5); MEAN CORPUSCULAR HEMOGLOBIN 26.6 pg (27.0-33.0); MEAN CORPUSCULAR HGB CONC 31.2 g/dl (32.0-36.5); MEAN CORPUSCULAR VOLUME 85.1 fl (80.0-96.0); PLATELET COUNT, AUTOMATED 156 10^3/uL (150-450); RED BLOOD COUNT 3.69 10^6/uL (4.00-5.40); WHITE BLOOD COUNT 7.6 10^3/uL (4.0-10.0)
[2020-08-13 10:34] LABS: ALBUMIN 2.4 GM/DL (3.2-5.2); ALT/SGPT 9 U/L (12-78); BILIRUBIN,TOTAL 0.2 MG/DL (0.2-1.0); BLOOD UREA NITROGEN 7 MG/DL (7-18); CARBON DIOXIDE LEVEL 27 MEQ/L (21-32); CHLORIDE LEVEL 111 MEQ/L (98-107); CREATININE FOR GFR 0.76 MG/DL (0.55-1.30); GLOMERULAR FILTRATION RATE > 60.0 (>60); GLUCOSE, FASTING 150 MG/DL (70-100); POTASSIUM SERUM 4.1 MEQ/L (3.5-5.1); SODIUM LEVEL 143 MEQ/L (136-145); TOTAL PROTEIN 5.8 GM/DL (6.4-8.2)
[2020-08-13] MEDS: LACTOBACILLUS ACIDOPHILUS CAP (BACID) PO SCH ×2 (11:23→17:02)
[2020-08-13 14:00] VITALS: BP 115/69
[2020-08-13] MEDS: ACETAMINOPHEN TAB 650MG DOSE (2X325MG) PO PRN (14:51)
[2020-08-13] MEDS ORDERED: MORPHINE 2 MG/ML 1ML VIAL (J2270) IV PRN (16:20)
--- NOTE | 2020-08-13 16:23 | IPNPDOC ---
Date Seen The patient was seen on 08/13/20. Progress Note Subjective: Pain severe at times, erythema extended out of marked area again today. Added linezolid to cover VRE and MRSA. Denies n/v, fevers, chills. Objective: GENERAL APPEARANCE: well nourished and developed, NAD HEENT: Clear sclerae, MMM CARDIOVASCULAR: RRR, no m/r/g LUNGS: CTAB on RA ABDOMEN: Obese, normoactive sounds, tender w palpation of lower abdomen- see INTEG below MUSCULOSKELETAL: NCAT / EDEN x 4 INTEGUMENT: Large lower abd incision packed, increased erythema, induration and tenderness in area around incision, serosanginous fluid soaked bandages. Erythema extending past outlined area of marker, warm to touch. Skin below abdominal pannus swollen NEUROLOGICAL: CN 2-12 intact,AAOx 3 PSYCHIATRIC: mood and affect appropriate LABORATORY DATA: Please see below IMAGING: CT abd/pelvis IMPRESSION: Abscess/fluid collection in the right lower anterior abdominal wall subcutaneous tissues has increased in size measures 3.8 x 5.9 x 5.2 cm (APxTxCC), previously 2.5 x 3.5 x 3.4 cm. MICROBIOLOGY: respiratory panel neg ASSESSMENT: is a 35 yr old w Depression, Anxiety, Bipolar disorder, hidradenitis suppurativa, & Anemia who is admitted for what appears to be a flair of her hidradenitis suppurativa. PLAN: Cellulitis and abscess, possibly infected chronic seroma right lower abdominal wall and right groin -POD 1: Incision and drainage of abscess right lower abdominal wall and right groin, 6 x 5 cm cavity -Hx of Hidradenitis suppurativa -F/u Wound cx -WBC wnl, afebrile; however, erythema extending far past outlined marked area this AM, increased tenderness -Added linezolid to Zosyn to cover VRE, MRSA -Daily labs, wound care -Surgery following Hyperglycemia likely 2/2 to infection/stress -HbA1c 5.6, BS 150 this AM -FS BID, consider adding ISS to cover if remains above 150 Depression, Anxiety, Bipolar disorder -Bupropion, Buspirone, Lamotrigine Class 3 Obesity -BMI 81.2 complicates care -can f/u w his or her PCP for sleep apnea screening, lifestyle modifications Tobacco Abuse -nicotine patch -smoking cessation education provided Hx of opiate abuse -c/w suboxone DVT px -Enoxaparin started DISPOSITION: C/w tx above. Surgery following. Plan is discharge home when medically improved VS, I&O, 24H, Fishbone Vital Signs/I&O Vital Signs Date Time Temp Pulse Resp B/P (MAP) Pulse Ox O2 Delivery O2 Flow Rate FiO2 08/13/20 14:00 98.0 85 17 115/69 (84) 98 Room Air I&O- Last 24 Hours up to 6 AM 08/13/20 06:00 Intake Total 1545 ml Output Total 10 ml Balance 1535 ml Laboratory Data 24H LABS Laboratory Tests 2 08/12/20 17:45: Bedside Glucose (Misc Panel) 132H 08/13/20 03:34: Bedside Glucose (Misc Panel) 145H 08/13/20 06:50: Bedside Glucose (Misc Panel) 104 08/13/20 09:34: Nucleated Red Blood Cells % (auto) 0.0, Anion Gap 5L, Glomerular Filtration Rate > 60.0, Calcium Level 8.0L, Total Bilirubin 0.2, Aspartate Amino Transf (AST/SGOT) 5L, Alanine Aminotransferase (ALT/SGPT) 9L, Alkaline Phosphatase 75, Total Protein 5.8L, Albumin 2.4L, Albumin/Globulin Ratio 0.7L CBC/BMP Laboratory Tests 08/13/20 09:34 Microbiology Microbiology 08/12/20 Gram Stain - Final, Resulted 08/12/20 Abscess Culture, Resulted Pending 08/12/20 Anaerobic Culture, Resulted Pending 08/12/20 Blood Culture - Preliminary, Resulted No growth after 24 hours . All specim... 08/11/20 Blood Culture - Preliminary, Resulted No growth after 24 hours . All specim... 08/11/20 Blood Culture - Preliminary, Resulted No growth after 24 hours . All specim... Seema Yarbrough MD August 13, 2020 16:23
[2020-08-13] MEDS: NICOTINE 21MG/24HR 1 EA TRANSDERMAL TD SCH (20:17)
[2020-08-13] MEDS: LINEZOLID 600 MG in IV 1 EA IV SCH (20:18)
[2020-08-13 22:07] VITALS: BP 116/69
[2020-08-14] MEDS: PIPERACILLIN/TAZOBACTAM SOD 4.5 GM in D5W MINI-BAG PLUS 50 ML IV SCH (03:48)
[2020-08-14 06:19] LABS: HEMATOCRIT 31.4 % (36.0-47.0); HEMOGLOBIN 9.7 g/dl (12.0-15.5); MEAN CORPUSCULAR HEMOGLOBIN 26.2 pg (27.0-33.0); MEAN CORPUSCULAR HGB CONC 30.9 g/dl (32.0-36.5); MEAN CORPUSCULAR VOLUME 84.9 fl (80.0-96.0); PLATELET COUNT, AUTOMATED 180 10^3/uL (150-450); WHITE BLOOD COUNT 6.6 10^3/uL (4.0-10.0)
[2020-08-14 06:20] VITALS: BP 117/69
[2020-08-14 06:37] LABS: BLOOD UREA NITROGEN 6 MG/DL (7-18); CALCIUM LEVEL 8.1 MG/DL (8.5-10.1); CARBON DIOXIDE LEVEL 28 MEQ/L (21-32); CHLORIDE LEVEL 112 MEQ/L (98-107); CREATININE FOR GFR 0.67 MG/DL (0.55-1.30); GLOMERULAR FILTRATION RATE > 60.0 (>60); GLUCOSE, FASTING 111 MG/DL (70-100); POTASSIUM SERUM 4.1 MEQ/L (3.5-5.1); SODIUM LEVEL 143 MEQ/L (136-145)
[2020-08-14] MEDS: lamoTRIgine 100MG TAB PO SCH (08:25)
[2020-08-14] MEDS: buPROPion **XL** TABLET 150MG (WELLBUTRIN XL) PO SCH (08:25)
[2020-08-14] MEDS: LACTOBACILLUS ACIDOPHILUS CAP (BACID) PO SCH ×2 (08:25→17:12)
[2020-08-14] MEDS: GABAPENTIN 300 MG CAP PO SCH ×3 (08:25→20:06)
[2020-08-14] MEDS: BUPRENORPHINE/NALOXONE 8-2MG SUBLINGUAL TABLET(SUBOXONE) SL SCH ×2 (08:26→20:06)
[2020-08-14] MEDS: ENOXAPARIN 40MG/0.4ML SYRINGE (J1650 PER 10MG) SC SCH (08:26)
[2020-08-14] MEDS: busPIRone 5 MG TAB PO SCH ×2 (08:26→20:06)
[2020-08-14] MEDS: LINEZOLID 600 MG in IV 1 EA IV SCH (08:26)
[2020-08-14] MEDS: CARIPRAZINE 3MG CAPSULE (VRAYLAR) PO SCH (08:26)
[2020-08-14] MEDS: ACETAMINOPHEN TAB 650MG DOSE (2X325MG) PO PRN (09:56)
--- NOTE | 2020-08-14 11:45 | IPNPDOC ---
Text Note Date of Service The patient was seen on 08/14/20. NOTE Gen. surgery. Dr. Patrick The patient is a 35-year-old female with cellulitis and abscess right lower abdominal wall, right groin status post incision and drainage of abscess 08/12/20. Abscess culture indicates enterococcus faecalis sensitive to IV Levaquin/Linezolid. The patient is sitting up in bed, awake and alert, no acute distress. Afebrile VSS Abdominal wound is examined as per Dr. Patrick, packing is removed. There is surrounding erythema and induration however this appears less pronounced compared with skin marking placed yesterday. Wound cavity is examined with no additional necrotic tissue noted. WBC 6.6, hemoglobin 9.7, platelets 180 Assessment/plan right lower abdominal wall abscess status post I/D 08/12/20, wound culture Enterococcus faecalis. Continue IV Levaquin/linezolid as per hospitalist Wound care orders in place as per Dr. Patrick Continue to closely monitor. VS,Fishbone, I+O VS, Fishbone, I+O Laboratory Tests 08/14/20 05:43 Vital Signs Date Time Temp Pulse Resp B/P (MAP) Pulse Ox O2 Delivery O2 Flow Rate FiO2 08/14/20 06:20 97.9 75 16 117/69 (85) 99 Room Air I&O- Last 24 Hours up to 6 AM 08/14/20 06:00 Intake Total 1610 ml Balance 1610 ml Cyn Emmanuel August 14, 2020 11:45
[2020-08-14 14:00] VITALS: BP 118/68
[2020-08-14] MEDS: KETOROLAC 30 MG/ML 1ML VIAL IV PRN (14:28)
[2020-08-14] MEDS: LevoFLOXacin IV 500 MG in IV 1 EA IV SCH (14:32)
--- NOTE | 2020-08-14 18:47 | IPNPDOC ---
Date Seen The patient was seen on 08/14/20. Progress Note Subjective: Pain severe at times, especially with wound care. E. faecalis grew from wound cx, sensitive to levofloxacin- started on this and d/christina other abx. D/w surgery: will likely need home health for wound care, updated PFS. Denies n/v, fevers, chills. Objective: GENERAL APPEARANCE: well nourished and developed, NAD HEENT: Clear sclerae, MMM CARDIOVASCULAR: RRR, no m/r/g LUNGS: CTAB on RA ABDOMEN: Obese, normoactive sounds, tender w palpation of lower abdomen- see INTEG below MUSCULOSKELETAL: NCAT / EDEN x 4 INTEGUMENT: Large lower abd incision unpacked, controlled area of erythema, induration and tenderness in area around incision, decreasead serosanginous fluid leaking from incision. Skin warm to touch. Skin below abdominal pannus swollen but has not worsened NEUROLOGICAL: CN 2-12 intact,AAOx 3 PSYCHIATRIC: mood and affect appropriate LABORATORY DATA: Please see below IMAGING: CT abd/pelvis IMPRESSION: Abscess/fluid collection in the right lower anterior abdominal wall subcutaneous tissues has increased in size measures 3.8 x 5.9 x 5.2 cm (APxTxCC), previously 2.5 x 3.5 x 3.4 cm. MICROBIOLOGY: respiratory panel neg ASSESSMENT: is a 35 yr old w Depression, Anxiety, Bipolar disorder, hidradenitis suppurativa, & Anemia who is admitted for what appears to be a flair of her hidradenitis suppurativa. PLAN: Cellulitis and E. faecalis abscess/ ? infected chronic seroma right lower abdominal wall and right groin -POD 2: Incision and drainage of abscess right lower abdominal wall and right groin, 6 x 5 cm cavity -Hx of Hidradenitis suppurativa -wound cx: E. faecalis, anerobic cx pending -WBC wnl, afebrile; however, erythema appears more controlled today -D/christina other abx, started on levofloxacin IV -Daily labs, wound care- will need home health , pain control with IV toradol -Surgery following Hyperglycemia likely 2/2 to infection/stress -HbA1c 5.6, BS 128 this AM -FS BID, consider adding ISS to cover if >150 Depression, Anxiety, Bipolar disorder -Bupropion, Buspirone, Lamotrigine Class 3 Obesity -BMI 39.4 complicates care -can f/u w his or her PCP for sleep apnea screening, lifestyle modifications Tobacco Abuse -nicotine patch -smoking cessation education provided Hx of opiate abuse -c/w suboxone DVT px -Enoxaparin started DISPOSITION: C/w tx above. Surgery following. Plan is discharge home when medically improved VS, I&O, 24H, Fishbone Vital Signs/I&O Vital Signs Date Time Temp Pulse Resp B/P (MAP) Pulse Ox O2 Delivery O2 Flow Rate FiO2 08/14/20 14:00 97.7 77 16 118/68 (85) 98 Room Air I&O- Last 24 Hours up to 6 AM 08/14/20 06:00 Intake Total 1610 ml Balance 1610 ml Laboratory Data 24H LABS Laboratory Tests 2 08/14/20 05:43: Nucleated Red Blood Cells % (auto) 0.0, Anion Gap 3L, Glomerular Filtration Rate > 60.0, Calcium Level 8.1L CBC/BMP Laboratory Tests 08/14/20 05:43 Microbiology Microbiology 08/12/20 Gram Stain - Final, Resulted 08/12/20 Abscess Culture - Final, Resulted Enterococcus Faecalis 08/12/20 Anaerobic Culture, Resulted Pending 08/12/20 Blood Culture - Preliminary, Resulted No Growth after 48 hours. All Specime... 08/11/20 Blood Culture - Preliminary, Resulted No Growth after 48 hours. All Specime... 08/11/20 Blood Culture - Preliminary, Resulted No Growth after 48 hours. All Specime... Seema Yarbrough MD August 14, 2020 18:47
[2020-08-14] MEDS: NICOTINE 21MG/24HR 1 EA TRANSDERMAL TD SCH (20:06)
[2020-08-14 22:00] VITALS: BP 121/76
[2020-08-15 06:00] VITALS: BP 121/79
[2020-08-15 06:03] LABS: HEMATOCRIT 33.9 % (36.0-47.0); HEMOGLOBIN 10.6 g/dl (12.0-15.5); MEAN CORPUSCULAR HEMOGLOBIN 26.6 pg (27.0-33.0); MEAN CORPUSCULAR HGB CONC 31.3 g/dl (32.0-36.5); MEAN CORPUSCULAR VOLUME 85.2 fl (80.0-96.0); PLATELET COUNT, AUTOMATED 203 10^3/uL (150-450); RED BLOOD COUNT 3.98 10^6/uL (4.00-5.40); WHITE BLOOD COUNT 6.3 10^3/uL (4.0-10.0)
[2020-08-15 06:27] LABS: BLOOD UREA NITROGEN 6 MG/DL (7-18); CALCIUM LEVEL 8.8 MG/DL (8.5-10.1); CARBON DIOXIDE LEVEL 29 MEQ/L (21-32); CHLORIDE LEVEL 108 MEQ/L (98-107); CREATININE FOR GFR 0.78 MG/DL (0.55-1.30); GLOMERULAR FILTRATION RATE > 60.0 (>60); GLUCOSE, FASTING 82 MG/DL (70-100); POTASSIUM SERUM 4.1 MEQ/L (3.5-5.1); SODIUM LEVEL 143 MEQ/L (136-145)
[2020-08-15] MEDS: KETOROLAC 30 MG/ML 1ML VIAL IV PRN ×2 (06:30→15:12)
[2020-08-15] MEDS: lamoTRIgine 100MG TAB PO SCH (08:16)
[2020-08-15] MEDS: BUPRENORPHINE/NALOXONE 8-2MG SUBLINGUAL TABLET(SUBOXONE) SL SCH ×2 (08:16→20:15)
[2020-08-15] MEDS: ENOXAPARIN 40MG/0.4ML SYRINGE (J1650 PER 10MG) SC SCH (08:16)
[2020-08-15] MEDS: GABAPENTIN 300 MG CAP PO SCH ×3 (08:17→20:15)
[2020-08-15] MEDS: busPIRone 5 MG TAB PO SCH ×2 (08:17→20:15)
[2020-08-15] MEDS: buPROPion **XL** TABLET 150MG (WELLBUTRIN XL) PO SCH (08:17)
[2020-08-15] MEDS: ACETAMINOPHEN TAB 650MG DOSE (2X325MG) PO PRN (08:17)
[2020-08-15] MEDS: LACTOBACILLUS ACIDOPHILUS CAP (BACID) PO SCH ×2 (08:17→17:06)
[2020-08-15] MEDS: CARIPRAZINE 3MG CAPSULE (VRAYLAR) PO SCH (08:17)
--- NOTE | 2020-08-15 11:05 | IPN ---
PROGRESS NOTE DATE: 08/15/2020 SUBJECTIVE: Risa is [facility]. She is status post incision and drainage of an abscess right lower abdominal wall. Postoperative day #3 and having a lot of pain around the wound. Enterococcus faecalis and is on Levaquin currently. Primarily a surgical case at this point. OBJECTIVE: VITAL SIGNS: Blood pressure 120/79, afebrile. GENERAL APPEARANCE: Alert, conversant, in no distress. LUNGS: Clear. HEART: Regular rhythm. ABDOMEN: Soft and nontender. The abdominal wound cavity is packed. There is inflammation surrounding it and it is tender to palpate, but not beyond what would be expected. LABORATORY DATA: White count 6.3, hemoglobin 10.6, platelets 203,000. Sodium 143, potassium 4.1, BUN 6, creatinine 0.7, glucose 82. IMPRESSION AND PLAN: 1. Abdominal wall abscess with cellulitis status post incision and drainage. Continue Levaquin. Surgery is following. 2. The patient's blood sugar has come under better control. Initially, it was elevated probably from stress hyperglycemia. She has a normal hemoglobin A1c and her random blood sugars are essentially normal. 3. History of various psychiatric difficulties. Continue current regimen. 4. Tobacco abuse using a nicotine patch. 5. History of opiate abuse. Avoid opiates. She does not want any opiate therapy. She is on Suboxone. We are using nonsteroidal anti-inflammatory drugs (NSAIDs) for pain control. Discharge when surgery says she is ready to go home.
[2020-08-15] MEDS: LevoFLOXacin IV 500 MG in IV 1 EA IV SCH (13:09)
[2020-08-15 14:00] VITALS: BP 131/80
[2020-08-15 15:13] VITALS: BP 132/80
[2020-08-15] MEDS: NICOTINE 21MG/24HR 1 EA TRANSDERMAL TD SCH (20:14)
[2020-08-15 22:00] VITALS: BP 131/78
[2020-08-16] MEDS: KETOROLAC 30 MG/ML 1ML VIAL IV PRN (05:41)
[2020-08-16 06:00] VITALS: BP 148/86
--- NOTE | 2020-08-16 09:14 | IPNPDOC ---
Text Note Date of Service The patient was seen on 08/16/20. NOTE Gen. surgery. Dr. Patrick The patient is a 35-year-old female with cellulitis and abscess right lower abdominal wall, right groin status post incision and drainage of abscess 08/12/20. Abscess culture indicates enterococcus faecalis sensitive to IV Levaquin/Linezolid. Afebrile VSS Abdominal wound with decreasing surrounding erythema and induration. WBC 6.3 Assessment/plan right lower abdominal wall abscess status post I/D 08/12/20, wound culture Enterococcus faecalis. IV Levaquin Wound care orders in place as per Dr. Patrick The patient is reviewed by Dr. Patrick, from surgical standpoint would be okay with for discharge when medically stable. This is relayed to the hospitalist. VS,Fishbone, I+O VS, Fishbone, I+O Vital Signs Date Time Temp Pulse Resp B/P (MAP) Pulse Ox O2 Delivery O2 Flow Rate FiO2 08/16/20 06:00 96.8 66 18 148/86 (106) 98 08/15/20 14:00 Room Air I&O- Last 24 Hours up to 6 AM 08/16/20 05:59 Intake Total 1080 ml Balance 1080 ml Cyn Emmanuel August 16, 2020 09:14
[2020-08-16] MEDS: GABAPENTIN 300 MG CAP PO SCH (09:34)
[2020-08-16] MEDS: BUPRENORPHINE/NALOXONE 8-2MG SUBLINGUAL TABLET(SUBOXONE) SL SCH (09:34)
[2020-08-16] MEDS: lamoTRIgine 100MG TAB PO SCH (09:34)
[2020-08-16] MEDS: CARIPRAZINE 3MG CAPSULE (VRAYLAR) PO SCH (09:35)
[2020-08-16] MEDS: LACTOBACILLUS ACIDOPHILUS CAP (BACID) PO SCH (09:35)
[2020-08-16] MEDS: busPIRone 5 MG TAB PO SCH (09:35)
[2020-08-16] MEDS: buPROPion **XL** TABLET 150MG (WELLBUTRIN XL) PO SCH (09:35)
[2020-08-16] MEDS: ENOXAPARIN 40MG/0.4ML SYRINGE (J1650 PER 10MG) SC SCH (09:35)
[2020-08-16] MEDS ORDERED: LEVO500T3 PO (09:41)
--- NOTE | 2020-08-16 19:08 | DS.PDOC ---
Discharge Summary General Date of Admission August 11, 2020 at 22:32 Date of Discharge 08/16/2020 Discharge Summary PRIMARY CARE PHYSICIAN: Pratibha Syed MD ATTENDING AT TIME OF DISCHARGE: Dr. Polly Michael, DO DISCHARGE DIAGNOS(E)S: Abdominal wall abscess with cellulitis status post I&D, Enterococcus faecalis Stress hyperglycemia Depression Anxiety Bipolar disorder Hidradenitis suppurativa Class III obesity Tobacco abuse History of opiate abuse, currently on Suboxone HPI & HOSPITAL COURSE: Patient had presented to the emergency department multiple times, and also was seen by her outpatient PCP, but failed outpatient antibiotics. She was found to have an abscess in the right lower quadrant of her abdomen. She did undergo I&D by the surgical team while inpatient. Leukocytosis and fevers have resolved, and her pain is significantly improved. Wound culture grew Enterococcus faecalis sensitive to levofloxacin. She does appear to be stable and ready for discharge at this time. Both she and her mother will be taught how to do dressing changes by nursing prior to discharge today. PHYSICAL EXAMINATION ON DISCHARGE: GENERAL: Awake, alert, oriented 3. She is in no acute distress. CARDIOVASCULAR EXAMINATION: Regular rate and rhythm, with no rubs, gallops, or murmur. RESPIRATORY EXAMINATION: Clear to auscultation bilaterally with no wheezes, rales, or rhonchi. ABDOMINAL EXAMINATION: Soft, nontender, nondistended. Bowel sounds present. Incision present with blue foam packed inside, there is still some mild maceration of the edges with less than 1 cm surrounding erythema. EXTREMITIES: No clubbing or edema noted. 2+ pulses in the radial bilaterally. DISPOSITION: Home with home health for nursing care DISCHARGE INSTRUCTIONS: Follow-up with primary care physician and surgeon within 7-14 days. Clean/soak wound with Vashe for 10-15 minutes, pack with Hydrofera Blue, cover with 4 x 4 and ABD, change dressing daily. Activity as tolerated. Diet as tolerated. If symptoms return, or if you experience worsening of your symptoms, please call your doctor or return to the emergency department. Vital Signs/I&Os Vital Signs Date Time Temp Pulse Resp B/P (MAP) Pulse Ox O2 Delivery O2 Flow Rate FiO2 08/16/20 06:00 96.8 66 18 148/86 (106) 98 08/15/20 14:00 Room Air I&O- Last 24 Hours up to 6 AM 08/16/20 06:00 Intake Total 900 ml Balance 900 ml Laboratory Data Labs 24H Laboratory Tests 2 08/15/20 20:58: Bedside Glucose (Misc Panel) 120H 08/16/20 06:08: Bedside Glucose (Misc Panel) 94 FSBS Laboratory Tests Test 08/15/20 20:58 08/16/20 06:08 Range/Units Bedside Glucose (Misc Panel) 120 94 70-105 MG/DL Microbiology Microbiology 08/12/20 Gram Stain - Final, Resulted 08/12/20 Abscess Culture - Final, Resulted Enterococcus Faecalis 08/12/20 Anaerobic Culture, Resulted Pending 08/12/20 Blood Culture - Preliminary, Resulted No Growth after 72 hours. All specime... 08/11/20 Blood Culture - Preliminary, Resulted No Growth after 72 hours. All specime... 08/11/20 Blood Culture - Preliminary, Resulted No Growth after 72 hours. All specime... Discharge Medications Scheduled Ammonium Lactate (Ammonium Lactate) 12% Cream..g., 1 APPLIC TOP DAILY, (Reported) APPLY TO FEET Buprenorphine HCl/Naloxone HCl (Suboxone 8 mg-2 mg Sl Film) 1 Each Film, 1 STRIP SL BID, (Reported) Bupropion HCl (Bupropion Xl) 300 Mg Tab, 300 MG PO DAILY, (Reported) Buspirone HCl (Buspirone HCl) 15 Mg Tablet, 15 MG PO BID, (Reported) Cariprazine HCl (Vraylar) 3 Mg Capsule, 3 MG PO DAILY, (Reported) Gabapentin (Gabapentin) 300 Mg Capsule, 300 MG PO TID, (Reported) Ketoconazole (Ketoconazole) 15 Gm Cream..g., 1 APPLIC TOP DAILY, (Reported) APPLY TO FEET Lamotrigine (Lamotrigine) 150 Mg Tablet, 150 MG PO DAILY, (Reported) Levofloxacin (Levofloxacin) 500 Mg Tablet, 1 TAB PO DAILY Scheduled PRN Albuterol Sulfate (Ventolin Hfa) 18 Gm Hfa.aer.ad, 2 PUFFS INH QID PRN for SOB/WHEEZING, (Reported) Propranolol HCl (Propranolol HCl) 10 Mg Tablet, 10 MG PO BID PRN for ANXIETY, (Reported) Allergies Coded Allergies: Sulfa (Sulfonamide Antibiotics) (Verified Allergy, Severe, hives and throat closes, 08/09/20) vancomycin (Verified Allergy, Intermediate, Redness and infiltration over the area of administration, 08/13/20) REDNESS OVER A LARGE AREA (APPROX 12 INCHES) AT INJECTION SITES ON BOTH ARMS UPON ADMINISTRATION OF POLLY GARCIA DO August 16, 2020 19:08
== END 2020-08-16 13:43 | disposition home health service (06) | DRG 364 ==
LOC: M ED 16:20 → M ED INP 22:32 → ENRESERV 08-12 00:13 → M MSPAV 08-12 00:52
PROVIDERS: ADMIT Internal Medicine; ATTEND Neuromusculoskeletal Medicine & OMM
PROC: 0W9F0ZZ Drainage of Abdominal Wall, Open Approach (ICD-10-PCS; principal; 2020-08-12 08:51)
DX: L03.311 Cellulitis of abdominal wall (principal); F11.10 Opioid abuse, uncomplicated; Z72.0 Tobacco use; F17.200 Nicotine dependence, unspecified, uncomplicated; F31.9 Bipolar disorder, unspecified; E66.9 Obesity, unspecified; L73.2 Hidradenitis suppurativa; Z79.899 Other long term (current) drug therapy; Z88.2 Allergy status to sulfonamides; Z88.1 Allergy status to other antibiotic agents; R73.9 Hyperglycemia, unspecified; L02.211 Cutaneous abscess of abdominal wall

== ENCOUNTER → 2021-05-21 | Outpatient (CLI) | payer OTHER ==
[~2021-05-21] MED LIST changes: +DOXY-443 PO; -DOXY100C37 PO; +GABA-282 PO; +LAMO150T3 PO; -LATU40TA PO; +LATU40TA2 PO; +LEVO500T4 PO; +METH-1177 PO; -METH10TA2 PO; +PROP10TA56 PO
[2021-05-21 10:06] LABS: BASO % 0.5 % (0.0-1.0); EOS # 0.3 10^3/uL (0.0-0.5); EOS % 2.9 % (0.0-3.0); HEMATOCRIT 36.5 % (36.0-47.0); HEMOGLOBIN 11.3 g/dl (12.0-15.5); LYMPH # 2.4 10^3/uL (1.5-5.0); LYMPH % 27.2 % (24.0-44.0); MEAN CORPUSCULAR HEMOGLOBIN 24.5 pg (27.0-33.0); MONO # 0.6 10^3/uL (0.0-0.8); MONO % 6.9 % (2.0-8.0); NEUTROPHILS # 5.5 10^3/uL (1.5-8.5); NEUTROPHILS % 61.8 % (36.0-66.0); PLATELET COUNT, AUTOMATED 231 10^3/uL (150-450); RED BLOOD COUNT 4.62 10^6/uL (4.00-5.40); WHITE BLOOD COUNT 8.9 10^3/uL (4.0-10.0)
[2021-05-21 10:28] LABS: HEMOGLOBIN A1c 6.1 %
[2021-05-21 11:07] LABS: ALBUMIN 3.2 GM/DL (3.2-5.2); ALT/SGPT 15 U/L (12-78); BILIRUBIN,TOTAL 0.2 MG/DL (0.2-1.0); BLOOD UREA NITROGEN 8 MG/DL (7-18); CALCIUM LEVEL 8.4 MG/DL (8.5-10.1); CARBON DIOXIDE LEVEL 25 MEQ/L (21-32); CHLORIDE LEVEL 108 MEQ/L (98-107); CHOLESTEROL LEVEL 190 MG/DL (<200); CHOLESTEROL RISK RATIO 6.129 (<5); CREATININE FOR GFR 0.68 MG/DL (0.55-1.30); FOLATE 5.8 NG/ML; GLOMERULAR FILTRATION RATE > 60.0 (>60); GLUCOSE, FASTING 101 MG/DL (70-100); HDL CHOLESTEROL 31 MG/DL (>40); LDL CHOLESTEROL 126 MG/DL (<100); NON-HDL-C 159 MG/DL; POTASSIUM SERUM 4.4 MEQ/L (3.5-5.1); SODIUM LEVEL 139 MEQ/L (136-145); TOTAL 25(OH) VITAMIN D 14.6 NG/ML (30.0-100.0); TOTAL PROTEIN 6.8 GM/DL (6.4-8.2); TRIGLYCERIDES LEVEL 163 MG/DL (<150); VITAMIN B12 LEVEL 459 PG/ML
== END ==
LOC: M LAB 09:20
PROVIDERS: ATTEND Student in an Organized Health Care Education/Training Program
DX: Z13.39 Encounter for screening examination for other mental health and behavioral disorders (principal)

== ENCOUNTER → 2021-05-21 | Outpatient (CLI) | payer OTHER ==
[2021-05-21 10:07] LABS: BASO # 0.1 10^3/uL (0.0-0.2); BASO % 0.7 % (0.0-1.0); EOS # 0.3 10^3/uL (0.0-0.5); HEMATOCRIT 36.5 % (36.0-47.0); HEMOGLOBIN 11.1 g/dl (12.0-15.5); LYMPH # 2.5 10^3/uL (1.5-5.0); MEAN CORPUSCULAR HGB CONC 30.4 g/dl (32.0-36.5); MONO # 0.6 10^3/uL (0.0-0.8); MONO % 6.7 % (2.0-8.0); NEUTROPHILS # 5.6 10^3/uL (1.5-8.5); NEUTROPHILS % 61.9 % (36.0-66.0); PLATELET COUNT, AUTOMATED 233 10^3/uL (150-450); RED BLOOD COUNT 4.62 10^6/uL (4.00-5.40); WHITE BLOOD COUNT 9.1 10^3/uL (4.0-10.0)
[2021-05-21 11:07] LABS: ALBUMIN 3.2 GM/DL (3.2-5.2); ALT/SGPT 14 U/L (12-78); BILIRUBIN,DIRECT < 0.1 MG/DL (0.0-0.2); BILIRUBIN,TOTAL 0.2 MG/DL (0.2-1.0); BLOOD UREA NITROGEN 7 MG/DL (7-18); CALCIUM LEVEL 8.5 MG/DL (8.5-10.1); CARBON DIOXIDE LEVEL 25 MEQ/L (21-32); CHLORIDE LEVEL 107 MEQ/L (98-107); CREATININE FOR GFR 0.67 MG/DL (0.55-1.30); GLOMERULAR FILTRATION RATE > 60.0 (>60); GLUCOSE, FASTING 101 MG/DL (70-100); PHOSPHORUS LEVEL 3.1 MG/DL (2.5-4.9); POTASSIUM SERUM 4.4 MEQ/L (3.5-5.1); SODIUM LEVEL 138 MEQ/L (136-145); TOTAL PROTEIN 6.8 GM/DL (6.4-8.2)
== END ==
LOC: M LAB 09:18
PROVIDERS: ATTEND Podiatrist Foot & Ankle Surgery
DX: B35.1 Tinea unguium (principal)

== ENCOUNTER → 2021-05-28 | Outpatient (CLI) | payer OTHER ==
[2021-05-28 15:49] LABS: APPEARANCE, URINE HAZY (CLEAR); BACTERIA, URINE AUTO NEGATIVE (NEGATIVE); BILIRUBIN, URINE AUTO NEGATIVE (NEGATIVE); BLOOD, URINE BLOOD NEGATIVE (NEGATIVE); COLOR, URINE YELLOW (YELLOW); GLUCOSE, URINE (UA) AUTO NEGATIVE (NEGATIVE); KETONE, URINE AUTO TRACE mg/dL (NEGATIVE); LEUKOCYTE ESTERASE, URINE AUTO NEGATIVE (NEGATIVE); MUCUS, URINE SMALL (NEGATIVE); NITRITE, URINE AUTO NEGATIVE (NEGATIVE); PROTEIN, URINE AUTO NEGATIVE (NEGATIVE); RBC, URINE AUTO 2 /HPF (0-3); SPECIFIC GRAVITY URINE AUTO 1.023 (1.002-1.035); SQUAMOUS EPITHELIAL CELL UR AU 8 /HPF (0-6); WBC, URINE AUTO 1 /HPF (0-3)
[2021-05-28 16:27] LABS: HEMATOCRIT 35.9 % (36.0-47.0); HEMOGLOBIN 11.1 g/dl (12.0-15.5); MEAN CORPUSCULAR HEMOGLOBIN 24.3 pg (27.0-33.0); MEAN CORPUSCULAR HGB CONC 30.9 g/dl (32.0-36.5); MEAN CORPUSCULAR VOLUME 78.7 fl (80.0-96.0); PLATELET COUNT, AUTOMATED 268 10^3/uL (150-450); RED BLOOD COUNT 4.56 10^6/uL (4.00-5.40); WHITE BLOOD COUNT 8.9 10^3/uL (4.0-10.0)
[2021-05-28 16:44] LABS: PERCENT SATURATION 5.1 % (13.2-45.0)
== END ==
LOC: M PLALAB 14:12
PROVIDERS: ATTEND Family Medicine
DX: D64.9 Anemia, unspecified (principal)

== ENCOUNTER → 2021-06-12 | Outpatient (REF) | payer OTHER ==
[2021-06-12 17:12] LABS: BASO # 0.1 10^3/uL (0.0-0.2); BASO % 0.6 % (0.0-1.0); EOS # 0.2 10^3/uL (0.0-0.5); HEMATOCRIT 35.3 % (36.0-47.0); LYMPH # 3.3 10^3/uL (1.5-5.0); LYMPH % 28.9 % (24.0-44.0); MEAN CORPUSCULAR HEMOGLOBIN 24.4 pg (27.0-33.0); MEAN CORPUSCULAR HGB CONC 31.2 g/dl (32.0-36.5); MEAN CORPUSCULAR VOLUME 78.3 fl (80.0-96.0); MONO # 0.7 10^3/uL (0.0-0.8); MONO % 6.4 % (2.0-8.0); NEUTROPHILS % 61.6 % (36.0-66.0); PLATELET COUNT, AUTOMATED 256 10^3/uL (150-450); RED BLOOD COUNT 4.51 10^6/uL (4.00-5.40); WHITE BLOOD COUNT 11.4 10^3/uL (4.0-10.0)
[2021-06-12 17:49] LABS: RSV AMPLIFICATION NEGATIVE (NEGATIVE)
[2021-06-12 18:31] LABS: HIV 1&2 SCREEN CENTAUR NEGATIVE (NEGATIVE)
[2021-06-12 18:53] LABS: GC DNA AMPLIFICATION NEGATIVE (NEGATIVE)
== END ==
LOC: M PLALAB 16:40
PROVIDERS: ATTEND Nurse Practitioner Family
DX: Z11.3 Encounter for screening for infections with a predominantly sexual mode of transmission (principal); L73.2 Hidradenitis suppurativa; Z20.822 Contact with and (suspected) exposure to COVID-19

== ENCOUNTER → 2021-07-19 | Outpatient (REF) | payer OTHER | LOC: M SFHCPLAZ 12:54 | PROVIDERS: ATTEND Family Medicine | DX: J06.9 Acute upper respiratory infection, unspecified (principal) ==

== ENCOUNTER → 2021-11-01 | Outpatient (REF) | payer OTHER ==
[~2021-11-01] MED LIST changes: +LEVO1TAB39 PO; -LEVO500T4 PO
== END ==
LOC: M SFHCPLAZ 16:48
PROVIDERS: ATTEND Physician Assistant
DX: R07.9 Chest pain, unspecified (principal)

== ENCOUNTER 2021-11-04 13:31 | Emergency (ER) | payer OTHER ==
[~2021-11-04] VITALS: Ht 160 cm; Wt 117.2 kg
[2021-11-04 16:13] LABS: RSV AMPLIFICATION NEGATIVE (NEGATIVE)
[2021-11-04] MEDS ORDERED: NS 1,000 ML IV ONE (17:00)
[2021-11-04] MEDS ORDERED: KETOROLAC 30 MG/ML 1ML VIAL IV ONE (17:00)
[2021-11-04 18:09] LABS: BASO % 0.3 % (0.0-1.0); EOS % 0.5 % (0.0-3.0); HEMATOCRIT 34.7 % (36.0-47.0); HEMOGLOBIN 11.1 g/dl (12.0-15.5); LYMPH # 0.3 10^3/uL (1.5-5.0); MEAN CORPUSCULAR HEMOGLOBIN 25.3 pg (27.0-33.0); MONO # 0.4 10^3/uL (0.0-0.8); NEUTROPHILS # 5.3 10^3/uL (1.5-8.5); NEUTROPHILS % 86.5 % (36.0-66.0); PLATELET COUNT, AUTOMATED 176 10^3/uL (150-450); RED BLOOD COUNT 4.39 10^6/uL (4.00-5.40); WHITE BLOOD COUNT 6.1 10^3/uL (4.0-10.0)
[2021-11-04 18:47] LABS: BLOOD UREA NITROGEN 9 MG/DL (7-18); CALCIUM LEVEL 8.5 MG/DL (8.5-10.1); CARBON DIOXIDE LEVEL 27 MEQ/L (21-32); CHLORIDE LEVEL 101 MEQ/L (98-107); CREATININE FOR GFR 0.86 MG/DL (0.55-1.30); GLOMERULAR FILTRATION RATE > 60.0 (>60); GLUCOSE, FASTING 119 MG/DL (70-100); POTASSIUM SERUM 4.3 MEQ/L (3.5-5.1); SODIUM LEVEL 131 MEQ/L (136-145)
[2021-11-04 19:31] VITALS: BP 126/58
== END 2021-11-04 19:39 | disposition home or self-care (01) ==
LOC: M ED 13:31
DX: U07.1 COVID-19 (principal); E11.9 Type 2 diabetes mellitus without complications; F31.9 Bipolar disorder, unspecified; F43.10 Post-traumatic stress disorder, unspecified; Z88.2 Allergy status to sulfonamides; Z88.1 Allergy status to other antibiotic agents; Z79.4 Long term (current) use of insulin; Z79.51 Long term (current) use of inhaled steroids; Z79.899 Other long term (current) drug therapy
CPT/HCPCS: 80048; 85025; 87631; 96361; 96374; 99284; J1885

== ENCOUNTER → 2021-11-21 | Outpatient (CLI) | payer OTHER ==
[2021-11-21 13:44] LABS: BASO % 0.4 % (0.0-1.0); EOS # 0.2 10^3/uL (0.0-0.5); EOS % 3.2 % (0.0-3.0); HEMATOCRIT 36.3 % (36.0-47.0); HEMOGLOBIN 11.3 g/dl (12.0-15.5); LYMPH # 2.3 10^3/uL (1.5-5.0); LYMPH % 30.6 % (24.0-44.0); MEAN CORPUSCULAR HEMOGLOBIN 24.8 pg (27.0-33.0); MEAN CORPUSCULAR HGB CONC 31.1 g/dl (32.0-36.5); MEAN CORPUSCULAR VOLUME 79.6 fl (80.0-96.0); MONO # 0.4 10^3/uL (0.0-0.8); MONO % 5.3 % (2.0-8.0); NEUTROPHILS # 4.6 10^3/uL (1.5-8.5); NEUTROPHILS % 60.1 % (36.0-66.0); PLATELET COUNT, AUTOMATED 214 10^3/uL (150-450); RED BLOOD COUNT 4.56 10^6/uL (4.00-5.40); WHITE BLOOD COUNT 7.6 10^3/uL (4.0-10.0)
[2021-11-21 14:31] LABS: ALBUMIN 3.1 GM/DL (3.2-5.2); ALT/SGPT 15 U/L (12-78); BILIRUBIN,TOTAL 0.2 MG/DL (0.2-1.0); BLOOD UREA NITROGEN 8 MG/DL (7-18); CALCIUM LEVEL 8.6 MG/DL (8.5-10.1); CARBON DIOXIDE LEVEL 27 MEQ/L (21-32); CHLORIDE LEVEL 107 MEQ/L (98-107); CREATININE FOR GFR 0.74 MG/DL (0.55-1.30); GLOMERULAR FILTRATION RATE > 60.0 (>60); GLUCOSE, FASTING 137 MG/DL (70-100); IRON (FE) 29 UG/DL (50-170); PERCENT SATURATION 7.2 % (13.2-45.0); POTASSIUM SERUM 4.3 MEQ/L (3.5-5.1); SODIUM LEVEL 138 MEQ/L (136-145); THYROID STIMULATING HORMONE 0.979 uIU/ML (0.358-3.740); TOTAL IRON BINDING CAPACITY 403 UG/DL (250-450); TOTAL PROTEIN 7.1 GM/DL (6.4-8.2)
[2021-11-21 14:42] LABS: HEMOGLOBIN A1c 5.9 %
[2021-11-21 15:05] LABS: PROGESTERONE 0.27 NG/ML
== END ==
LOC: M RAD 11:50
PROVIDERS: ATTEND Physician Assistant
DX: N92.1 Excessive and frequent menstruation with irregular cycle (principal); R07.9 Chest pain, unspecified; R73.9 Hyperglycemia, unspecified

== ENCOUNTER → 2022-03-02 | Outpatient (REF) | payer OTHER, MEDICAID | LOC: M LAB REF 18:08 | PROVIDERS: ATTEND Physician Assistant Medical | DX: R05.9 Cough, unspecified (principal) ==

== ENCOUNTER → 2022-06-26 | Outpatient (REF) | payer OTHER, MEDICAID ==
[2022-06-26 18:51] LABS: BASO # 0.1 10^3/uL (0.0-0.2); BASO % 0.6 % (0.0-1.0); EOS # 0.2 10^3/uL (0.0-0.5); EOS % 2.9 % (0.0-3.0); HEMATOCRIT 36.8 % (36.0-47.0); LYMPH # 2.6 10^3/uL (1.5-5.0); LYMPH % 31.8 % (24.0-44.0); MEAN CORPUSCULAR HEMOGLOBIN 28.1 pg (27.0-33.0); MEAN CORPUSCULAR HGB CONC 32.6 g/dl (32.0-36.5); MEAN CORPUSCULAR VOLUME 86.2 fl (80.0-96.0); MONO # 0.6 10^3/uL (0.0-0.8); MONO % 6.8 % (2.0-8.0); NEUTROPHILS # 4.8 10^3/uL (1.5-8.5); NEUTROPHILS % 57.8 % (36.0-66.0); PLATELET COUNT, AUTOMATED 175 10^3/uL (150-450); RED BLOOD COUNT 4.27 10^6/uL (4.00-5.40); WHITE BLOOD COUNT 8.3 10^3/uL (4.0-10.0)
[2022-06-26 19:19] LABS: ALBUMIN 3.5 G/DL (3.2-5.2); ALKALINE PHOSPHATASE 96 U/L (46-116); ALT/SGPT 10 U/L (7.0-40); AST/SGOT 10 U/L (<34); BILIRUBIN,TOTAL 0.3 MG/DL (0.3-1.2); BLOOD UREA NITROGEN 7 MG/DL (9-23); CALCIUM LEVEL 8.9 MG/DL (8.5-10.1); CARBON DIOXIDE LEVEL 29 MMOL/L (20-31); CHLORIDE LEVEL 106 MMOL/L (98-107); CHOLESTEROL LEVEL 143 MG/DL (<200); CHOLESTEROL RISK RATIO 4.94 (<5); CREATININE FOR GFR 0.58 MG/DL (0.55-1.30); FREE T4 0.86 NG/DL (0.89-1.76); GLOMERULAR FILTRATION RATE > 60.0 (>60); GLUCOSE, FASTING 78 MG/DL (60-100); HDL CHOLESTEROL 28.9 MG/DL (>40); LDL CHOLESTEROL 95.9 MG/DL (<100); NON-HDL-C 114.1 MG/DL; POTASSIUM SERUM 4.3 MMOL/L (3.5-5.1); SODIUM LEVEL 140 MMOL/L (136-145); THYROID STIMULATING HORMONE 2.503 uIU/ML (0.55-4.78); TOTAL PROTEIN 6.8 G/DL (5.7-8.2); TRIGLYCERIDES LEVEL 91 MG/DL (<150)
== END ==
LOC: M LAB REF 16:37
PROVIDERS: ATTEND Family Medicine Addiction Medicine
DX: R53.83 Other fatigue (principal); E66.3 Overweight

== ENCOUNTER → 2022-07-08 | Outpatient (REF) | payer OTHER, MEDICAID ==
[2022-07-09 13:20] LABS: APPEARANCE, URINE HAZY (CLEAR); BACTERIA, URINE AUTO NEGATIVE (NEGATIVE); BILIRUBIN, URINE AUTO NEGATIVE (NEGATIVE); BLOOD, URINE BLOOD 3+ (NEGATIVE); COLOR, URINE YELLOW (YELLOW); GLUCOSE, URINE (UA) AUTO NEGATIVE (NEGATIVE); KETONE, URINE AUTO NEGATIVE (NEGATIVE); LEUKOCYTE ESTERASE, URINE AUTO NEGATIVE (NEGATIVE); MUCUS, URINE SMALL (NEGATIVE); NITRITE, URINE AUTO NEGATIVE (NEGATIVE); PROTEIN, URINE AUTO 1+ mg/dL (NEGATIVE); RBC, URINE AUTO TNTC /HPF (0-3); SPECIFIC GRAVITY URINE AUTO 1.013 (1.002-1.035); SQUAMOUS EPITHELIAL CELL UR AU 0 /HPF (0-6); UROBILINOGEN, URINE AUTO 0.2 mg/dL (0.0-2.0); WBC, URINE AUTO 3 /HPF (0-3)
== END ==
LOC: M LAB REF 12:33
PROVIDERS: ATTEND Family Medicine Addiction Medicine
DX: R39.9 Unspecified symptoms and signs involving the genitourinary system (principal)

== ENCOUNTER → 2022-07-22 | Outpatient (REF) | payer OTHER, MEDICAID ==
[2022-07-22 18:14] LABS: FREE T4 0.92 NG/DL (0.89-1.76)
[2022-07-22 18:32] LABS: THYROID STIMULATING HORMONE 1.17 uIU/ML (0.55-4.78)
== END ==
LOC: M LAB REF 16:32
PROVIDERS: ATTEND Family Medicine Addiction Medicine
DX: R89.1 Abnormal level of hormones in specimens from other organs, systems and tissues (principal)

== ENCOUNTER → 2023-01-01 | Outpatient (REF) | payer OTHER ==
[2023-01-01 21:33] LABS: APPEARANCE, URINE HAZY (CLEAR); BACTERIA, URINE AUTO NEGATIVE (NEGATIVE); BILIRUBIN, URINE AUTO NEGATIVE (NEGATIVE); BLOOD, URINE BLOOD 1+ (NEGATIVE); COLOR, URINE YELLOW (YELLOW); GLUCOSE, URINE (UA) AUTO NEGATIVE (NEGATIVE); KETONE, URINE AUTO TRACE mg/dL (NEGATIVE); LEUKOCYTE ESTERASE, URINE AUTO NEGATIVE (NEGATIVE); MUCUS, URINE SMALL (NEGATIVE); NITRITE, URINE AUTO NEGATIVE (NEGATIVE); PROTEIN, URINE AUTO NEGATIVE (NEGATIVE); RBC, URINE AUTO 4 /HPF (0-3); SPECIFIC GRAVITY URINE AUTO 1.018 (1.002-1.035); SQUAMOUS EPITHELIAL CELL UR AU 6 /HPF (0-6); WBC, URINE AUTO 0 /HPF (0-3)
== END ==
LOC: M LAB REF 20:59
PROVIDERS: ATTEND Physician Assistant
DX: N39.0 Urinary tract infection, site not specified (principal)

== ENCOUNTER → 2023-02-01 | Outpatient (REF) | payer OTHER ==
[2023-02-01 19:48] LABS: URINE PREG TEST NEGATIVE (NEGATIVE)
[2023-02-01 22:18] LABS: CHLAMYDIA DNA AMPLIFICATION NEGATIVE (NEGATIVE); GC DNA AMPLIFICATION NEGATIVE (NEGATIVE)
== END ==
LOC: M LAB REF 19:31
PROVIDERS: ATTEND Physician Assistant Medical
DX: Z20.2 Contact with and (suspected) exposure to infections with a predominantly sexual mode of transmission (principal)

== ENCOUNTER → 2023-02-28 | Outpatient (REF) | payer OTHER ==
[2023-02-28 21:53] LABS: APPEARANCE, URINE CLEAR (CLEAR); BACTERIA, URINE AUTO NEGATIVE (NEGATIVE); BILIRUBIN, URINE AUTO NEGATIVE (NEGATIVE); BLOOD, URINE BLOOD 2+ (NEGATIVE); COLOR, URINE YELLOW (YELLOW); GLUCOSE, URINE (UA) AUTO NEGATIVE (NEGATIVE); KETONE, URINE AUTO NEGATIVE (NEGATIVE); LEUKOCYTE ESTERASE, URINE AUTO NEGATIVE (NEGATIVE); NITRITE, URINE AUTO NEGATIVE (NEGATIVE); PROTEIN, URINE AUTO NEGATIVE (NEGATIVE); RBC, URINE AUTO 24 /HPF (0-3); SPECIFIC GRAVITY URINE AUTO 1.012 (1.002-1.035); SQUAMOUS EPITHELIAL CELL UR AU 3 /HPF (0-6); UROBILINOGEN, URINE AUTO 0.2 mg/dL (0.0-2.0); WBC, URINE AUTO 2 /HPF (0-3)
[2023-02-28 23:31] LABS: CHLAMYDIA DNA AMPLIFICATION NEGATIVE (NEGATIVE); GC DNA AMPLIFICATION NEGATIVE (NEGATIVE)
== END ==
LOC: M LAB REF 21:38
PROVIDERS: ATTEND Physician Assistant Medical
DX: Z20.2 Contact with and (suspected) exposure to infections with a predominantly sexual mode of transmission (principal); N39.0 Urinary tract infection, site not specified

== ENCOUNTER → 2023-05-11 | Outpatient (REF) | payer OTHER | LOC: M LAB REF 17:27 | PROVIDERS: ATTEND Physician Assistant Medical | DX: B34.9 Viral infection, unspecified (principal) ==

== ENCOUNTER → 2023-08-04 | Outpatient (REF) | payer OTHER ==
[~2023-08-04] MED LIST changes: +BUPR-597 PO; -BUPR300T92 PO; +DOXY-323 PO; -DOXY-443 PO
== END ==
LOC: M LAB REF 16:25
PROVIDERS: ATTEND Family Medicine Addiction Medicine
DX: R39.9 Unspecified symptoms and signs involving the genitourinary system (principal)

== ENCOUNTER → 2024-08-09 | Outpatient (CLI) | payer OTHER ==
[~2024-08-09] MED LIST changes: +AMMO12CR4 TOP; -AMMO12CR7 TOP; -BUPR-597 PO; +BUPR-766 PO; -DOXY-323 PO; +DOXY-441 PO; +GABA-1172 PO; -GABA-282 PO; +TOPI-257 PO; -TOPI100T9 PO; -ZIPR40CA11 PO; +ZIPR40CA21 PO
== END ==
LOC: M PLAIMG 12:11
PROVIDERS: ATTEND Physician Assistant
DX: H73.891 Other specified disorders of tympanic membrane, right ear (principal)

== ENCOUNTER → 2024-08-11 | Outpatient (CLI) | payer OTHER | LOC: M RAD 13:38 | PROVIDERS: ATTEND Nurse Practitioner Family | DX: M79.672 Pain in left foot (principal) ==

== ENCOUNTER 2024-12-06 06:55 | Emergency (ER) | payer OTHER ==
[~2024-12-06] VITALS: Ht 162.6 cm; Wt 81.6 kg
[2024-12-06 06:59] VITALS: TEMP 98.7
[2024-12-06 08:30] VITALS: BP 108/60
[2024-12-06 08:40] VITALS: O2SAT 93
== END 2024-12-06 09:25 | disposition home or self-care (01) ==
LOC: M ED 08:04
DX: S09.90XA Unspecified injury of head, initial encounter (principal); S80.812A Abrasion, left lower leg, initial encounter; S13.4XXA Sprain of ligaments of cervical spine, initial encounter; S40.012A Contusion of left shoulder, initial encounter; W10.9XXA Fall (on) (from) unspecified stairs and steps, initial encounter; M50.30 Other cervical disc degeneration, unspecified cervical region; F17.200 Nicotine dependence, unspecified, uncomplicated; Z88.2 Allergy status to sulfonamides; Z88.8 Allergy status to other drugs, medicaments and biological substances; Y92.009 Unspecified place in unspecified non-institutional (private) residence as the place of occurrence of the external cause; Y93.89 Activity, other specified; Y99.9 Unspecified external cause status; Z79.52 Long term (current) use of systemic steroids; Z79.899 Other long term (current) drug therapy

== ENCOUNTER 2024-12-08 12:24 | Emergency (ER) | payer OTHER ==
[~2024-12-08] VITALS: Ht 162.6 cm; Wt 82.1 kg
[2024-12-08] MEDS: KETOROLAC 30 MG/ML 1 ML VIAL IV ONE (15:23)
[2024-12-08] MEDS: NS (Normal Saline) 0.9% 1,000 ML IV ONE (15:23)
[2024-12-08] MEDS: diphenhydrAMINE 50 MG/ML VIAL IV ONE (15:24)
[2024-12-08] MEDS: MECLIZINE 25 MG TABLET PO ONE (15:24)
[2024-12-08] MEDS: ACETAMINOPHEN 500 MG TAB PO ONE (15:24)
[2024-12-08] MEDS: TETANUS/DIPHTH/ACEL. PERTUSSIS 0.5 ML SYR IM.IMMUN ONE (15:25)
[2024-12-08] MEDS ORDERED: NAPR220C23 PO (16:45)
[2024-12-08 16:46] VITALS: O2SAT 97
[2024-12-08 16:49] VITALS: TEMP 99.6
[2024-12-08 16:50] VITALS: BP 117/62
== END 2024-12-08 17:06 | disposition home or self-care (01) ==
LOC: M ED 12:24
DX: G44.329 Chronic post-traumatic headache, not intractable (principal); F31.9 Bipolar disorder, unspecified; F43.10 Post-traumatic stress disorder, unspecified; B19.20 Unspecified viral hepatitis C without hepatic coma; F17.200 Nicotine dependence, unspecified, uncomplicated; F19.11 Other psychoactive substance abuse, in remission; Z88.2 Allergy status to sulfonamides; Z88.8 Allergy status to other drugs, medicaments and biological substances; Z79.52 Long term (current) use of systemic steroids; Z79.899 Other long term (current) drug therapy; Z79.1 Long term (current) use of non-steroidal anti-inflammatories (NSAID)
CPT/HCPCS: 90471; 90715; 96361; 96374; 96375; 99284; J1200; J1885; J2765

== ENCOUNTER → 2025-01-14 | Outpatient (CLI) | payer OTHER ==
[~2025-01-14] MED LIST changes: +NAPR220C23 PO
== END ==
LOC: M WUC 11:25
PROVIDERS: ATTEND Physician Assistant
DX: M79.672 Pain in left foot (principal)

== ENCOUNTER → 2025-03-09 | Outpatient (CLI) | payer OTHER | LOC: M RAD 14:12 | PROVIDERS: ATTEND Family Medicine Addiction Medicine | DX: M79.672 Pain in left foot (principal) ==